=== PATIENT | female | born 1950 | race Caucasian/White ===

== ENCOUNTER 2019-11-21 15:01 | Emergency (ER) | payer OTHER ==
[2019-11-21 16:27] LABS: Protime INR 1.03
[2019-11-21 16:29] LABS: Absolute Lymphocytes (CBC) 1.4 K/uL (0.7-4.9); Hematocrit 38.6 % (36.0-45.0); Lymphocytes % 17.1 % (15.3-44.8); MPV 8.7 fL (7.6-11.3)
[2019-11-21 16:38] LABS: ALT/SGPT 16 U/L (12-78); AST/SGOT 19 U/L (15-37); Albumin 3.8 g/dL (3.4-5.0); Alkaline Phosphatase 108 U/L (45-117); BUN Blood Urea Nitrogen 17 mg/dL (7-18); Bicarbonate 28 mmol/L (21-32); Bilirubin Direct < 0.1 mg/dL (0-0.2); Bilirubin Total 0.3 mg/dL (0.2-1.0); Glucose Level 90 mg/dL (74-106); Magnesium 2.2 mg/dL (1.8-2.4); NT PRO-BNP 183 pg/mL (<125); Potassium 3.9 mmol/L (3.5-5.1); Protein, Total 7.3 g/dL (6.4-8.2); Sodium Level 137 mmol/L (136-145); Troponin (Emerg Dept Use Only) < 0.02 ng/mL (0.0-0.045)
--- NOTE | 2019-11-21 16:52 | RAD REPORT ---
EXAM DESCRIPTION: CT - Chest For Pe Angio - 11/21/2019 4:29 pm CLINICAL HISTORY: hemoptysis COMPARISON: 2012 TECHNIQUE: Dynamically enhanced axial 3 mm thick images of the chest were obtained during administra tion of <100> mL Isovue 370 IV contrast. Coronal and oblique reconstruction images were generated and reviewed. Exam utilizes a protocol for optimal evaluation of pulmonary arterial tree. Maximum intensity projections 3D imaging was utilized All CT scans are performed using dose optimization technique as appropriate and may include automated exposure control or mA/KV adjustment according to patient size. FINDINGS: A pulmonary embolus is not seen. The ascending thoracic aorta is ectatic measuring 3.8 centimeters. Bovine aorta A pleural effusion is not seen. A pericardial effusion is not seen. A lung consolidation is not present. Mild COPD IMPRESSION: Negative for a pulmonary embolism.
[2019-11-21 18:04] VITALS: TEMP 98.4
[2019-11-21 18:06] VITALS: BP 185/80; O2SAT 95
--- NOTE | 2019-11-22 12:55 | EKG ---
Test Date: 2019-11-21 Test Time: 16:48:27 Horse Identifier: SELVIN MEASUREMENT RESULTS: Intervals: Rate: 68 [place]: 160 QRSD: 74 QT: 440 QTc: 467 [place]: P: 62 [place]: 160 QRS: 13 T: -24 INTERPRETIVE STATEMENTS: Normal sinus rhythm Nonspecific T wave abnormality Abnormal ECG Electronically Signed On 11-22-19 12:54:56 CDT by Vivek Lara
--- NOTE | 2019-11-24 17:12 | ER ---
Nurse's Notes [facility] Name: Lachelle Spann Age: 68 yrs Sex: Female : 1950 Arrival Date: 11/21/2019 Time: 15:04 Bed 18 Private MD: Bakari Velasco V Diagnosis: Hemoptysis Presentation: 11/20 15:28 Chief complaint: Patient states: 1 episode of hemoptysis today after coughing, also ph reports SOB and L leg swelling, denies fever or chills. Coronavirus screen: Patient denies a cough. Patient reports shortness of breath or difficulty breathing. Patient denies measured and/or subjective temperature greater than 100.4F prior to today's visit. Patient denies travel on a cruise ship or to a country the [facility] currently lists as an affected area. Patient denies contact with known and/or suspected case of COVID-19. Ebola Screen: No symptoms or risks identified at this time. Initial Sepsis Screen: Does the patient meet any 2 criteria? No. Patient's initial sepsis screen is negative. Does the patient have a suspected source of infection? No. Patient's initial sepsis screen is negative. Risk Assessment: Do you want to hurt yourself or someone else? Patient reports no desire to harm self or others. Onset of symptoms was November 21, 2019. 15:28 Method Of Arrival: Ambulatory ph 15:28 Acuity: DORA 3 ph Historical: - Allergies: 15:35 No Known Allergies; ph - Home Meds: 15:35 duloxetine oral oral [Active]; Methylphenidate Oral [Active]; levothyroxine oral ph [Active]; Bupropion Oral [Active]; atorvastatin oral oral [Active]; Zyrtec Oral [Active]; Combivent Inhl [Active]; Triamcinolone Acetonide Topical [Active]; trelegy ellipta inhaler [Active]; - PMHx: 15:35 allergies; Depression; GERD; COPD; ph - Immunization history:: Adult Immunizations unknown. - Social history:: Smoking status: Patient denies any tobacco usage or history of. Screenin:40 Abuse screen: Denies threats or abuse. Denies injuries from another. Nutritional ca1 screening: No deficits noted. Tuberculosis screening: No symptoms or risk factors identified. Fall Risk IV access (20 points). Assessment: 15:40 General: Appears in no apparent distress. comfortable, Behavior is calm, cooperative, ca1 appropriate for age. Pain: Denies pain. Neuro: Level of Consciousness is awake, alert, obeys commands, Oriented to person, place, time, situation, Appropriate for age. Cardiovascular: Heart tones S1 S2 present Capillary refill < 3 seconds Patient's skin is warm and dry. Respiratory: Airway is patent Respiratory effort is even, unlabored, Respiratory pattern is regular, symmetrical, Breath sounds are clear bilaterally. GI: Abdomen is round non-distended, Bowel sounds present X 4 quads. Abd is soft and non tender X 4 quads. : No signs and/or symptoms were reported regarding the genitourinary system. EENT: Throat is clear. Derm: Skin is intact, is healthy with good turgor, Skin is pink, warm \T\ dry. Musculoskeletal: Circulation, motion, and sensation intact. Capillary refill < 3 seconds. 16:40 Reassessment: Patient appears in no apparent distress at this time. No changes from ca1 previously documented assessment. Patient and/or family updated on plan of care and expected duration. Pain level reassessed. Patient is alert, oriented x 3, equal unlabored respirations, skin warm/dry/pink. 17:33 Reassessment: Patient appears in no apparent distress at this time. Patient is alert, ca1 oriented x 3, equal unlabored respirations, skin warm/dry/pink. 17:41 Reassessment: Notified provider re BP. No orders at this time. ca1 Vital Signs: 15:28 BP 157 / 67; Pulse 62; Resp 18; Temp 98.4; Pulse Ox 95% on R/A; Weight 90.72 kg; Height ph 5 ft. 2 in. (157.48 cm); 16:40 BP 175 / 74; Pulse 65; Resp 16 S; Pulse Ox 96% on R/A; ca1 17:38 BP 185 / 80; Pulse 64; Resp 16 S; Pulse Ox 95% on R/A; ca1 15:28 Body Mass Index 36.58 (90.72 kg, 157.48 cm) ph ED Course: 15:04 Patient arrived in ED. ag5 15:04 Bakari Velasco MD is Private Physician. [facility] 15:17 Cody Hough PA is PHCP. [facility] 15:17 Allan Heath MD is Attending Physician. jmm 15:31 Triage completed. ph 15:36 Arm band placed on Patient placed in an exam room. ph 15:40 Analilia Delgadillo, RN is Primary Nurse. ca1 15:40 Patient has correct armband on for positive identification. Bed in low position. Call ca1 light in reach. Side rails up X 1. color television console monitor on. Pulse ox on. NIBP on. Warm blanket given. 16:07 No provider procedures requiring assistance completed. Initial lab(s) drawn, by ma, ca1 sent to lab. Inserted saline lock: 22 gauge in right antecubital area, using aseptic technique. Blood collected. 16:30 CT Chest For PE Angio In Process Unspecified. EDMS 17:00 Bakari Velasco MD is Referral Physician. [facility] 17:42 IV discontinued, intact, bleeding controlled, No redness/swelling at site. Pressure ca1 dressing applied. Administered Medications: No medications were administered Outcome: 17:00 Discharge ordered by MD. [facility] 17:42 Discharged to home ambulatory. ca1 17:42 Condition: stable 17:42 Discharge instructions given to patient, Instructed on discharge instructions, follow up and referral plans. Demonstrated understanding of instructions, follow-up care. 17:44 Patient left the ED. ca1 Signatures: Dispatcher [employer] EDMS Cody Hough PA PA jmm Hall, Patricia, RN RN Analilia Delgadillo, RN RN [facility] Carolyn Haynes ag5 Corrections: (The following items were deleted from the chart) 17:38 16:40 BP 185 / 80; Pulse 64bpm; Resp 16bpm; Spontaneous; Pulse Ox 95% RA; ca1 ca1
--- NOTE | 2019-11-24 17:12 | EDPHYS ---
Physician Documentation [facility] Name: Lachelle Spann Age: 68 yrs Sex: Female : 1950 Arrival Date: 11/21/2019 Time: 15:04 Bed 18 Private MD: Bakari Velasco V ED Physician Allan Heath HPI: 11/20 15:42 This 68 yrs old Female presents to ER via Ambulatory with complaints of jmm Coughing up Blood. 15:42 The patient or guardian reports cough. Onset: The symptoms/episode began/occurred jmm acutely, today. Modifying factors: The symptoms are alleviated by nothing, the symptoms are aggravated by nothing. This is a 68 year old female with a history of copd that presents to the ED with complaints of coughing up blood. Patient denies abnormal shortness of breath, fever, or chest pain. . Historical: - Allergies: 15:35 No Known Allergies; ph - Home Meds: 15:35 duloxetine oral oral [Active]; Methylphenidate Oral [Active]; levothyroxine oral ph [Active]; Bupropion Oral [Active]; atorvastatin oral oral [Active]; Zyrtec Oral [Active]; Combivent Inhl [Active]; Triamcinolone Acetonide Topical [Active]; trelegy ellipta inhaler [Active]; - PMHx: 15:35 allergies; Depression; GERD; COPD; ph - Immunization history:: Adult Immunizations unknown. - Social history:: Smoking status: Patient denies any tobacco usage or history of. ROS: 15:42 Constitutional: Negative for fever, chills, and weight loss, Cardiovascular: Negative jmm for chest pain, palpitations, and edema. 15:42 Abdomen/GI: Negative for abdominal pain, nausea, vomiting, diarrhea, and constipation, Back: Negative for injury and pain, : Negative for injury, bleeding, discharge, and swelling, MS/Extremity: Negative for injury and deformity, Skin: Negative for injury, rash, and discoloration, Neuro: Negative for headache, weakness, numbness, tingling, and seizure, Psych: Negative for depression, anxiety, suicide ideation, homicidal ideation, and hallucinations. 15:42 Respiratory: Positive for hemoptysis. 15:42 All other systems are negative. Exam: 15:42 Constitutional: This is a well developed, well nourished patient who is awake, alert, jmm and in no acute distress. Head/Face: atraumatic. Eyes: EOMI, no conjunctival erythema appreciated ENT: Moist Mucus Membranes Neck: Trachea midline, Supple 15:42 Chest/axilla: Normal chest wall appearance and motion. Cardiovascular: Regular rate and rhythm. No edema appreciated Respiratory: Normal respirations, no respiratory distress appreciated Abdomen/GI: Non distended, soft Back: Normal ROM Skin: General appearance color normal MS/ Extremity: Moves all extremities, no obvious deformities appreciated, no edema noted to the lower extremities Neuro: Awake and alert, normal gait Psych: Behavior is normal, Mood is normal, Patient is cooperative and pleasant 15:42 ENT: Posterior pharynx: is normal. Vital Signs: 15:28 BP 157 / 67; Pulse 62; Resp 18; Temp 98.4; Pulse Ox 95% on R/A; Weight 90.72 kg; Height ph 5 ft. 2 in. (157.48 cm); 16:40 BP 175 / 74; Pulse 65; Resp 16 S; Pulse Ox 96% on R/A; ca1 17:38 BP 185 / 80; Pulse 64; Resp 16 S; Pulse Ox 95% on R/A; ca1 15:28 Body Mass Index 36.58 (90.72 kg, 157.48 cm) ph MDM: 15:42 Patient medically screened. [facility] 16:59 Data reviewed: vital signs, nurses notes. Counseling: I had a detailed discussion with [facility] the patient and/or guardian regarding: the historical points, exam findings, and any diagnostic results supporting the discharge/admit diagnosis, lab results, radiology results, the need for outpatient follow up, to return to the emergency department if symptoms worsen or persist or if there are any questions or concerns that arise at home. ED course: Labs and imaging studies are negative. Patient is advised to follow up with pcp for reevaluation. patient understood and agrees with the plan of care. . 11/20 15:50 Order name: Basic Metabolic Panel; Complete Time: 16:[address] [facility] 11/20 15:50 Order name: CBC with Diff; Complete Time: 16:[address] [facility] 11/20 15:50 Order name: LFT's; Complete Time: 16:[address] [facility] 11/20 15:50 Order name: Magnesium; Complete Time: 16:[address] [facility] 11/20 15:50 Order name: NT PRO-BNP; Complete Time: 16:[address] [facility] 11/20 15:50 Order name: PT-INR; Complete Time: 16:[address] [facility] 11/20 15:50 Order name: Troponin (emerg Dept Use Only); Complete Time: 16:[address] [facility] 11/20 15:50 Order name: EKG; Complete Time: 15:[address] [facility] 11/20 15:50 Order name: Cardiac monitoring; Complete Time: 16:[address] [facility] 11/20 15:50 Order name: EKG - Nurse/Tech; Complete Time: 16:[address] [facility] 11/20 15:50 Order name: IV Saline Lock; Complete Time: 16:[address] [facility] 11/20 15:50 Order name: Labs collected and sent; Complete Time: 16:[address] [facility] 11/20 15:50 Order name: CT Chest For PE Angio; Complete Time: 16:[address] [facility] 11/20 16:42 Order name: CREATININE WHOLE BLOOD [facility] 11/20 15:50 Order name: O2 Per Protocol; Complete Time: 16:[address] [facility] 11/20 15:50 Order name: O2 Sat Monitoring; Complete Time: 16:[address] [facility] Administered Medications: No medications were administered Disposition: 11/21 07:49 Co-signature as Attending Physician, Allan Heath MD I agree with the assessment and zarina plan of care. Disposition: 11/21/19 17:00 Discharged to Home. Impression: Hemoptysis. - Condition is Stable. - Discharge Instructions: Hemoptysis. - Medication Reconciliation Form, Thank You Letter, Antibiotic Education, Prescription Opioid Use form. - Follow up: Bakari Velasco MD; When: 2 - 3 days; Reason: Recheck today's complaints, Continuance of care, Re-evaluation by your physician. Signatures: Dispatcher [employer] Allan Lyn MD MD cha Mickail, Joel, PA PA Ailyn Anderson, RODRIGO RN Analilia Rogers RN RN ca1 Corrections: (The following items were deleted from the chart) 11/20 17:44 17:00 11/21/2019 17:00 Discharged to Home. Impression: Hemoptysis. Condition is Stable. ca1 Forms are Medication Reconciliation Form, Thank You Letter, Antibiotic Education, Prescription Opioid Use. Follow up: Bakari Velasco; When: 2 - 3 days; Reason: Recheck today's complaints, Continuance of care, Re-evaluation by your physician. stevan
== END 2019-11-21 17:44 | disposition home or self-care (01) ==
LOC: ER 15:01
DX: R04.2 Hemoptysis (principal); J44.9 Chronic obstructive pulmonary disease, unspecified; F32.9 Major depressive disorder, single episode, unspecified
CPT/HCPCS: 93005; 85025; 80048; 36415; 83735; 85610; 82565; 80076; 84484; 83880; 71275; 99284; Q9967

== ENCOUNTER 2021-01-22 17:15 | Inpatient (IN) | payer OTHER ==
--- OUTSIDE RECORDS SUMMARY | 2021-01-22 17:17 | XMS REPORT | Continuity of Care Document ---
:1950 Author Organization [facility] t Address [address] [place] [address] [address] [place] [address] Care Team Providers Name Role Phone Annalisa Dalal MD Attending Clinician Problems This patient has no known problems. Allergies, Adverse Reactions, Alerts This patient has no known allergies or adverse reactions. Medications This patient has no known medications. Procedures This patient has no known procedures. Encounters Start End Encounter Admission Attending Care Care Encounter Source Date/Time Date/Time Type Type Clinicians Facility Department ID 2020-01-09 2020-01-09 Office [place] [facility] [id number] 15:19:18 16:43:19 Visit Kaity Guy [id number] [place] [id number] [place] [id number] [facility] [address] [facility] Results This patient has no known results.
[2021-01-22] MEDS ORDERED: LEVALBUTEROL 1.25 MG/3 ML NEB ONE (18:34)
[2021-01-22] MEDS ORDERED: MAGNESIUM SULFATE 1 gm IVPB 1 GM/100 ML BAG IV ONE (18:34)
[2021-01-22] MEDS ORDERED: METHYLPREDNISOLONE 125 MG INJ ONE (18:34)
[2021-01-22 19:14] LABS: Absolute Lymphocytes (CBC) 0.8 K/uL (0.7-4.9); Basophils % 0.8 % (0-1.3); Lymphocytes % 10.6 % (15.3-44.8); RBC Red Blood Cell Count 4.45 M/uL (3.86-4.86)
[2021-01-22 19:19] LABS: Protime INR 1.13
[2021-01-22 19:25] LABS: Albumin 3.6 g/dL (3.4-5.0); Bilirubin Direct 0.1 mg/dL (0-0.2); Bilirubin Total 0.4 mg/dL (0.2-1.0); Magnesium 2.3 mg/dL (1.8-2.4); Potassium 4.2 mmol/L (3.5-5.1); Protein, Total 6.6 g/dL (6.4-8.2); Troponin (Emerg Dept Use Only) 0.04 ng/mL (0.0-0.045)
--- NOTE | 2021-01-22 19:35 | RAD REPORT ---
EXAM DESCRIPTION: RAD - Chest Single View - 01/22/2021 6:15 pm CLINICAL HISTORY: shortness of breath COMPARISON: Chest Pa And Lat (2 Views) dated 01/19/2021; Chest Pa And Lat (2 Views) dated 12/22/2020; Chest Pa And Lat (2 Views) dated 11/13/2019; Chest Pa And Lat (2 Views) dated 01/02/2019; Chest Angio d ated 12/22/2020 FINDINGS: Basilar opacities are present bilaterally, left greater than right, with blunted costophre whitney angles. Cardiomegaly. No acute osseous abnormality. IMPRESSION: Similar basilar airspace disease compared with 01/19/21 which could represent pneumonia b ut could also be secondary to edema with small effusions.
--- NOTE | 2021-01-22 22:13 | RAD REPORT ---
EXAM DESCRIPTION: CT - Chest For Pe Angio - 01/22/2021 9:49 pm CLINICAL HISTORY: left lower lung pain COMPARISON: Chest Angio dated 12/22/2020; Chest For Pe Angio dated 11/21/2019; CT-LOW DOSE CT CHEST SC REENING dated 05/01/2013; Chest Single View dated 01/22/2021 FINDINGS: Chest Wall: No suspicious thyroid nodules or pathologic lymphadenopathy. Lungs: Atelectasis as a result of the effusions. No convincing evidence of pneumonia. Mild areas of i nterlobular septal thickening. Pleura: Bilateral pleural effusions, small in size. Pleural base calcification left lower lobe. There is some fluid in the right major fissure. Increasing pleural/subpleural nodularity in the right midd le lobe. Mediastinum/sharon: No pathologic lymphadenopathy. Pulmonary arteries/Aorta: No filling defect identified. 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 Heart: No significant pericardial effusion. Normal heart size. Coronary artery calcifications. Trace pericardial effusion. Upper abdomen: New small volume of ascites. Bones: No acute abnormality. IMPRESSION: Negative for pulmonary embolism. New pleural effusions compared with 12/22/2020 of uncertain etiology, possibly some mild edema. In ad dition, increasing pleural-based nodularity along the right middle lobe compared with the prior study . A benign etiology is favored but the appearance is atypical for pneumonia. It may be more prominent secondary to the underlying pleural fluid or perhaps superimposed atelectasis. Consider either short term follow-up chest CT in 3 months and/or nonemergent diagnostic thoracentesis for fluid analysis. Small volume of ascites which is new from prior.
--- NOTE | 2021-01-22 23:25 | EDPHYS ---
Physician Documentation [facility] Name: Lachelle Spann Age: 70 yrs Sex: Female : 1950 Arrival Date: 01/22/2021 Time: 17:16 Bed 6 Private MD: ED Physician Cain Couch HPI: 01/22 17:50 This 70 yrs old Female presents to ER via Wheelchair with complaints of jmm Breathing Difficulty. 17:50 The patient has shortness of breath at rest, with light activity. Onset: The jmm symptoms/episode began/occurred gradually, 2 week(s) ago. Duration: The symptoms are continuous, and are steadily getting worse. The patient's shortness of breath is aggravated by nothing, is alleviated by nothing. Associated signs and symptoms: Pertinent positives: non-productive cough, Pertinent negatives: fever. The patient has experienced similar episodes in the past. Historical: - Allergies: 17:25 No Known Allergies; iw - PMHx: 17:25 allergies; COPD; Depression; GERD; iw - Immunization history:: Client reports receiving the 2nd dose of the Covid vaccine. - Social history:: Smoking status: Patient/guardian denies using tobacco, the patient reports quitting approximately 10 years ago. ROS: 17:50 Constitutional: Negative for fever, chills, and weight loss, Cardiovascular: Negative jmm for chest pain, palpitations, and edema. 17:50 Respiratory: Positive for cough. 17:50 All other systems are negative. Exam: 17:50 Constitutional: This is a well developed, well nourished patient who is awake, alert, jmm and in no acute distress. Head/Face: atraumatic. Eyes: EOMI, no conjunctival erythema appreciated ENT: Moist Mucus Membranes Neck: Trachea midline, Supple Chest/axilla: Normal chest wall appearance and motion. Cardiovascular: Regular rate and rhythm. No edema appreciated Abdomen/GI: Non distended, soft Back: Normal ROM Skin: General appearance color normal MS/ Extremity: Moves all extremities, no obvious deformities appreciated, no edema noted to the lower extremities Neuro: Awake and alert, normal gait Psych: Behavior is normal, Mood is normal, Patient is cooperative and pleasant 17:50 Respiratory: mild respiratory distress is noted, Respirations: labored breathing, that is mild, Breath sounds: decreased breath sounds, that are moderate, are heard in the left posterior upper lobe and right posterior upper lobe. Vital Signs: 17:24 BP 156 / 98; Pulse 94; Resp 24 S; Temp 97.2; Pulse Ox 95% on R/A; Weight 54.43 kg; iw Height 5 ft. 2 in. (157.48 cm); 20:03 BP 156 / 86; Pulse 77; Resp 26; Pulse Ox 100% on Nebulizer Mask; em 22:39 BP 150 / 89; Pulse 97; Resp 22; Pulse Ox 93% on R/A; em 17:24 Body Mass Index 21.95 (54.43 kg, 157.48 cm) iw MDM: 17:39 Patient medically screened. [facility] 23:15 Data reviewed: vital signs, nurses notes. ED course: patient continues to have chest jmm pain and sob. Dr. Heath will discuss the patient with Dr. Velasco in the AM. . 01/22 17:33 Order name: Basic Metabolic Panel [facility] 01/22 17:33 Order name: CBC with Diff [facility] 01/22 17:33 Order name: LFT's [facility] 01/22 17:33 Order name: Magnesium; Complete Time: 19:40 [facility] 01/22 17:33 Order name: NT PRO-BNP; Complete Time: 19:40 [facility] 01/22 17:33 Order name: PT-INR; Complete Time: 19:40 [facility] 01/22 17:33 Order name: Troponin (emerg Dept Use Only); Complete Time: 19:40 [facility] 01/22 17:33 Order name: Basic Metabolic Panel; Complete Time: 19:40 [facility] 01/22 17:33 Order name: CBC with Automated Diff; Complete Time: 19:40 [facility] 01/22 17:33 Order name: Liver (Hepatic) Function; Complete Time: 19:40 [facility] 01/22 17:41 Order name: Procalcitonin; Complete Time: 19:47 [facility] 01/22 17:41 Order name: Lactate; Complete Time: 19:40 [facility] 01/22 17:41 Order name: Blood Culture Adult (2) [facility] 01/22 17:33 Order name: XRAY Chest (1 view); Complete Time: 19:40 [facility] 01/22 17:33 Order name: EKG; Complete Time: 17:33 [facility] 01/22 21:02 Order name: CT Chest For PE Angio; Complete Time: 22:13 [facility] 01/22 22:12 Order name: Troponin (emerg Dept Use Only); Complete Time: 23:02 [facility] 01/22 22:29 Order name: SARS-COV-2 RT PCR; Complete Time: 22:33 [facility] 01/22 23:41 Order name: Basic Metabolic Panel [facility] 01/22 23:41 Order name: Basic Metabolic Panel [facility] 01/22 23:41 Order name: CONS Physician Consult [facility] 01/22 23:41 Order name: Troponin I [facility] 01/22 23:41 Order name: Troponin I [facility] 01/22 23:41 Order name: Troponin I [facility] 01/22 23:41 Order name: CBC with Automated Diff [facility] 01/22 23:41 Order name: CBC with Automated Diff [facility] 01/22 17:33 Order name: Cardiac monitoring; Complete Time: 18:30 [facility] 01/22 17:33 Order name: EKG - Nurse/Tech; Complete Time: 20:03 [facility] 01/22 17:33 Order name: IV Saline Lock; Complete Time: 19:15 [facility] 01/22 17:33 Order name: Labs collected and sent; Complete Time: 19:15 [facility] 01/22 17:33 Order name: O2 Per Protocol; Complete Time: 18:30 [facility] 01/22 17:33 Order name: O2 Sat Monitoring; Complete Time: 18:30 [facility] 01/22 21:18 Order name: Misc. Order: ambulate o2; Complete Time: 22:42 [facility] 01/22 23:41 Order name: EKG Electrocardiogram [facility] 01/22 23:41 Order name: EKG Electrocardiogram [facility] 01/22 23:41 Order name: EKG Electrocardiogram [facility] 01/22 23:41 Order name: EKG Electrocardiogram [facility] Administered Medications: 19:50 Drug: Magnesium Sulfate 1 grams Route: IVPB; Infused Over: 1 hrs; Site: right em antecubital; 22:28 Follow up: Response: No adverse reaction; IV Status: Completed infusion; IV Intake: em 100ml 19:50 Drug: SOLU-Medrol (methylPrednisoLONE) 125 mg Route: IVP; Site: right antecubital; em 22:28 Follow up: Response: No adverse reaction em 20:03 Drug: Xopenex (levalbuterol) (3) 1.25 mg Route: Inhalation; em 22:28 Follow up: Response: No adverse reaction; Marked relief of symptoms em Disposition: 01/23 07:02 Co-signature as Attending Physician, Cain Couch MD I agree with the assessment and rn plan of care. Attestation: The patient's history, exam findings, diagnostics, and a summary of any interventions or procedures was reviewed in detail with Cody GORDON. Disposition Summary: 01/22/21 23:25 Hospitalization Ordered Hospitalization Status: Observation [facility] Provider: Bakari Velasco Location: Telemetry/MedSur (observation) [facility] Condition: Stable jmm Problem: new jmm Symptoms: are unchanged jmm Bed/Room Type: Standard [facility] Room Assignment: 214(01/22/21 23:52) bb Diagnosis - Chest pain, unspecified jmm - Shortness of breath jmm Forms: - Medication Reconciliation Form jmm - SBAR form jmm Signatures: Dispatcher [employer] EDMS Cody Hough PA PA m Frederick Ansari, RN RODRIGO em Emani Mcnair RN RN Adriana Hubbard RN Cain Diaz MD MD learning strategist: (The following items were deleted from the chart) 01/22 20:48 17:33 CORONAVIRUS+LAB.BRZ ordered. EDIA EDMS 23:52 23:25 osmani berger
--- NOTE | 2021-01-22 23:25 | ER ---
Nurse's Notes [facility] Name: Lachelle Spann Age: 70 yrs Sex: Female : 1950 Arrival Date: 01/22/2021 Time: 17:16 Bed 6 Private MD: Diagnosis: Chest pain, unspecified;Shortness of breath Presentation: 01/22 17:24 Chief complaint: Patient states: had CXR done a couple days ago , got a call today that iw she has pneumonia and to come to ER, per Dr. Velasco. Has had diff bx for a couple weeks , no cough, hx of COPD SPO2 is 92%. Coronavirus screen: Client presents with at least one sign or symptom that may indicate coronavirus-19. Ebola Screen: Patient negative for fever greater than or equal to 101.5 degrees Fahrenheit, and additional compatible Ebola Virus Disease symptoms Patient denies exposure to infectious person. Patient denies travel to an Ebola-affected area in the 21 days before illness onset. No symptoms or risks identified at this time. Initial Sepsis Screen: Does the patient meet any 2 criteria? No. Patient's initial sepsis screen is negative. Does the patient have a suspected source of infection? No. Patient's initial sepsis screen is negative. Risk Assessment: Do you want to hurt yourself or someone else? Patient reports no desire to harm self or others. Onset of symptoms was January 07, 2021. 17:24 Method Of Arrival: Wheelchair iw 17:24 Acuity: DORA 2 iw Historical: - Allergies: 17:25 No Known Allergies; iw - PMHx: 17:25 allergies; COPD; Depression; GERD; iw - Immunization history:: Client reports receiving the 2nd dose of the Covid vaccine. - Social history:: Smoking status: Patient/guardian denies using tobacco, the patient reports quitting approximately 10 years ago. Screenin:22 Abuse screen: Denies threats or abuse. Nutritional screening: No deficits noted. em Tuberculosis screening: No symptoms or risk factors identified. Fall Risk None identified. Assessment: 18:57 General: Appears in no apparent distress. comfortable, Behavior is calm, cooperative, jd3 appropriate for age. Pain: Denies pain. Neuro: Level of Consciousness is awake, alert, obeys commands. Cardiovascular: Denies chest pain, Capillary refill < 3 seconds Patient's skin is warm and dry. Respiratory: Reports shortness of breath on exertion Airway is patent Respiratory effort is even, unlabored, Respiratory pattern is regular, symmetrical. GI: No signs and/or symptoms were reported involving the gastrointestinal system. : No signs and/or symptoms were reported regarding the genitourinary system. EENT: No signs and/or symptoms were reported regarding the EENT system. Derm: Skin is intact, Skin is dry, Skin is normal, Skin temperature is warm. Musculoskeletal: Circulation, motion, and sensation intact. Range of motion: intact in all extremities. 20:04 Reassessment: Patient appears in no apparent distress at this time. Patient and/or em family updated on plan of care and expected duration. Pain level reassessed. Patient is alert, oriented x 3, equal unlabored respirations, skin warm/dry/pink. 22:39 Reassessment: pt ambulated about 40 feet, SPO2 92% after ambulation, provider notified. em 01/23 00:30 Reassessment: Patient appears in no apparent distress at this time. Patient and/or em family updated on plan of care and expected duration. Pain level reassessed. Patient is alert, oriented x 3, equal unlabored respirations, skin warm/dry/pink. Vital Signs: 01/22 17:24 BP 156 / 98; Pulse 94; Resp 24 S; Temp 97.2; Pulse Ox 95% on R/A; Weight 54.43 kg; iw Height 5 ft. 2 in. (157.48 cm); 20:03 BP 156 / 86; Pulse 77; Resp 26; Pulse Ox 100% on Nebulizer Mask; em 22:39 BP 150 / 89; Pulse 97; Resp 22; Pulse Ox 93% on R/A; em 17:24 Body Mass Index 21.95 (54.43 kg, 157.48 cm) ED Course: 17:16 Patient arrived in ED. rg4 17:25 Triage completed. iw 17:26 Arm band placed on. iw 17:32 Cody Hough PA is PHCP. m 17:32 Cain Couch MD is Attending Physician. jmm 18:15 XRAY Chest (1 view) In Process Unspecified. EDMS 18:57 Aly Martines, RODRIGO is Primary Nurse. jd3 18:57 Inserted saline lock: 22 gauge in right antecubital area, using aseptic technique. jd3 Blood collected. 19:22 Patient has correct armband on for positive identification. Bed in low position. Call em light in reach. Adult w/ patient. jewelry sales on. Pulse ox on. NIBP on. 20:03 EKG done, by ED staff, reviewed by Cody GORDON. em 21:49 CT Chest For PE Angio In Process Unspecified. EDMS 23:16 Bakari Velasco MD is Hospitalizing Provider. [facility] 01/23 00:53 No provider procedures requiring assistance completed. Patient admitted, IV remains in em place. Administered Medications: 01/22 19:50 Drug: Magnesium Sulfate 1 grams Route: IVPB; Infused Over: 1 hrs; Site: right em antecubital; 22:28 Follow up: Response: No adverse reaction; IV Status: Completed infusion; IV Intake: em 100ml 19:50 Drug: SOLU-Medrol (methylPrednisoLONE) 125 mg Route: IVP; Site: right antecubital; em 22:28 Follow up: Response: No adverse reaction em 20:03 Drug: Xopenex (levalbuterol) (3) 1.25 mg Route: Inhalation; em 22:28 Follow up: Response: No adverse reaction; Marked relief of symptoms em Intake: 22:28 IV: 100ml; Total: 100ml. em Outcome: 23:25 Decision to Hospitalize by Provider. [facility] 01/23 00:53 Admitted to Med/surg accompanied by tech, via wheelchair, room 214, Report called to mario Gifford RN Condition: stable Instructed on the need for admit, Demonstrated understanding of instructions. 01:16 Patient left the ED. em Signatures: Dispatcher [employer] EDCody Patel PA PA Frederick Coates, RN RN Adriana Lord RN RN iw Garcia, Rubi rgAly Renteria RN RN jd3
[2021-01-22] MEDS ORDERED: ACETAMINOPHEN 500 MG TAB PO PRN (23:38)
[2021-01-22] MEDS ORDERED: ONDANSETRON 4 MG/2 ML VIAL IV PRN (23:38)
[2021-01-23 01:21] VITALS: BMI 34.9
[2021-01-23 04:18] LABS: Absolute Lymphocytes (CBC) 0.4 K/uL (0.7-4.9); Basophils % 0.5 % (0-1.3); Hematocrit 35.2 % (36.0-45.0); Lymphocytes % 4.3 % (15.3-44.8); RBC Red Blood Cell Count 4.61 M/uL (3.86-4.86)
[2021-01-23 05:07] LABS: Potassium 4.3 mmol/L (3.5-5.1)
[2021-01-23] MEDS ORDERED: PNEUMOCOCCAL VACCINE 0.5 ML IMVAC ONE (08:00)
[2021-01-23] MEDS: ALBUTEROL SULFATE IH SCH ×4 (09:00→20:55)
[2021-01-23] MEDS ORDERED: HOME MED 1 EA UNK (Duloxetine Hcl [Cymbalta] 60 MG Capsule.Dr) PO SCH (09:00)
[2021-01-23] MEDS: IPRATROPIUM IH SCH ×4 (09:00→20:55)
[2021-01-23] MEDS: [UNRECOGNIZED DRUG - OTHER] IH SCH ×4 (09:00→20:55)
[2021-01-23] MEDS ORDERED: ASPIRIN EC 81 MG TAB PO SCH (09:00)
[2021-01-23] MEDS ORDERED: TRAZODONE 50 MG TABLET PO SCH (09:00)
[2021-01-23] MEDS: HOME MED 1 EA UNK (Fluticasone/Umeclidin/Vilanter [Trelegy Ellipta 100-62.5-25] Blst.W.Dev IH SCH (09:00)
[2021-01-23] MEDS: DULOXETINE 30 MG CAP PO SCH (10:10)
[2021-01-23] MEDS: ATORVASTATIN 10 MG TAB PO SCH (10:10)
[2021-01-23] MEDS: BUPROPION HCL XL 150 MG TAB PO SCH (10:10)
[2021-01-23] MEDS: ASPIRIN EC 81 MG TAB PO SCH (10:14)
--- NOTE | 2021-01-23 11:30 | P.HP ---
Certification for Inpatient Patient admitted to: Observation With expected LOS: <2 Midnights Practitioner: I am a practitioner with admitting privileges, knowledge of patient current condition, hospital course, and medical plan of care. Services: Services provided to patient in accordance with Admission requirements found in Title 42 Section 412.3 of the Code of Federal Regulations Patient History Date of Service: 01/23/21 Reason for admission: SHORT OF BREATH History of Present Illness: JERRICA HAS BEEN DYSPNEIC WIT EXERCSION FOR 3 WEEKS. CXR SHOWED INFILTERATE BUT ACTUALLY SHE DOES NOT HAVE COUGH, FEVER, SPUTUM ETC. HER COVID TEST IS NEGATIVE. SHE HAS KNOWN CAD WITH STENTS. Allergies No Known Allergies Allergy (Verified 06/11/14 16:10) Home medications list reviewed: Yes Home Medications: Bupropion *Xl* [Wellbutrin XL*] 300 mg PO DAILY 06/11/14 Ipratropium/Albuterol Sulfate [Combivent Respimat Inhal [place]] 1 puff IH QID 06/11/14 Levothyroxine Sodium [Synthroid] 100 mcg PO DAILY 06/11/14 Trazodone [Desyrel*] 50 mg PO DAILY 06/11/14 Aspirin [Ecotrin 81 MG] 81 mg PO DAILY #30 tablet. 06/13/14 Atorvastatin Calcium [Lipitor*] 10 mg PO DAILY 01/23/21 Duloxetine HCl [Cymbalta] 60 mg PO DAILY 01/23/21 Fluticasone/Umeclidin/Vilanter [Trelegy Ellipta 100-62.5-25] 1 puff IH DAILY 01/23/21 - Past Medical/Surgical History Has patient received pneumonia vaccine in the past: No Diabetic: No -: COPD -: HTN -: Endometriosis sx -: Cardiac stentx2 2014 -: Adhesiolysis - Family History Mother -: Cancer Notes: breast cancer Father -: Heart disease Sister -: Stroke - Social History Smoking Status: Former smoker Alcohol use: Yes CD- Drugs: No Caffeine use: Yes Place of Residence: Home Review of Systems 10-point ROS is otherwise unremarkable General: Weakness, Malaise Respiratory: Shortness of Breath Physical Examination - Vital Signs Temperature: 97.2 F Blood Pressure: 136/69 Pulse: 69 Respirations: 18 Pulse Ox (%): 91 - Physical Exam General: Oriented x3, Mild distress HEENT: Atraumatic, PERRLA, Mucous membr. moist/pink, EOMI, Sclerae nonicteric Neck: Supple, 2+ carotid pulse no bruit, No LAD, Without JVD or thyroid abnormality, JVD distended (MILD) Respiratory: Clear to auscultation bilaterally, Normal air movement Cardiovascular: Regular rate/rhythm, Normal S1 S2 Gastrointestinal: Normal bowel sounds, No tenderness Musculoskeletal: No tenderness Integumentary: No rashes Neurological: Normal gait, Normal speech, Normal strength at 5/5 x4 extr, Normal tone, Normal affect Lymphatics: No axilla or inguinal lymphadenopathy - Studies Laboratory Data (last 24 hrs) 01/22/21 23:45: Troponin I Cancelled 01/22/21 18:49: PT 13.0 H, INR 1.13 01/22/21 18:49: WBC 7.90, Hgb 10.9 L, Hct 34.0 L, Plt Count 250 01/22/21 18:49: Sodium 140, Potassium 4.2, BUN 11, Creatinine 0.90, Glucose 91, Magnesium 2.3, Total Bilirubin 0.4, AST 13 L, ALT 15, Alkaline Phosphatase 95 Assessment and Plan - Problems (Diagnosis) (1) Acute diastolic heart failure Current Visit: Yes Status: Acute Plan: START LASIX BID AND KCL BID. ECHO WITH DOPPLER MOST LIKELY DIASTOLIC HEART FAILURE. RO NEED OF CATH AGAIN. CONSULT DR. RAMACHANDRAN. (2) Coronary artery disease Onset Date: 06/12/14 Current Visit: No Status: Chronic Qualifiers: Coronary Disease-Associated Artery/Lesion type: [place] artery - Advance Directives Does patient have a Living Will: No Does patient have a Durable POA for Healthcare: No
[2021-01-23] MEDS: LOSARTAN POTASSIUM 50 MG TABLET PO SCH (13:48)
[2021-01-23] MEDS: FUROSEMIDE 20 MG/ 2ML VIAL IV SCH (16:55)
--- NOTE | 2021-01-23 17:26 | CON ---
Date of Consultation: 01/23/2021 Reason For Consultation: Shortness of breath. History Of Present Illness: This is an elderly female, known history of coronary artery disease, sta tus post cardiac stents in 2013, hypertension, COPD, presented with worsening shortness of breath ove r the past 2 weeks. She cannot take any deep breath as it causes discomfort on the left rib cage sunny ng with shortness of breath. She said moving inside her house from room to room will make her short winded. Denies having any significant orthopnea, but she has lower extremity edema. Past Medical History: As outlined above in the HPI. Medications: Refer to reconciliation sheet for detailed list. Allergies: NO KNOWN DRUG ALLERGIES. Family History: No premature coronary artery disease. Social History: She is an ex-smoker. Does not drink or use any drugs. Review of Systems: All systems reviewed and they were negative except for mentioned in the HPI. Physical Examination: Vital Signs: Temperature is 97.0, pulse is 93, breathing at 17, blood pressure 137/78, saturating 91 % on room air. General: Pleasant elderly female, no apparent distress. Head and Neck: Pupils are equal, reactive to light. Intact eye movements. No JVD. No cervical lym phadenopathy. Neck: Supple. Thyroid is not enlarged. Lungs: Decreased breathing sounds bilaterally with faint crackles in the bases. No accessory muscle use or muscle retraction. Heart: Regular rate and rhythm. No extra sounds. Abdomen: Soft, nontender. Bowel sounds positive. No organomegaly. No masses or hernia. No rigidi ty or rebound. Extremities: Trace edema bilaterally. No clubbing, cyanosis. Intact pulses. Skin: No rash. Neurologic: Alert, awake, oriented x3. No acute focal deficits appreciated. Investigations: Troponins are negative. NT-proBNP was 5271. Creatinine is 0.9. Hemoglobin is 11.2 . Had a CTA of the chest, no PE, but there is pleural effusion and possible mild edema. Assessment And Recommendations: Shortness of breath, likely representing acute on chronic congestive heart failure exacerbation. Recent ejection fraction is unknown. Agree with IV diuretics. Increas e Lasix to 40 mg IV q.12 hours and monitor BUN, creatinine, electrolytes, and also please obtain echo cardiogram with further recommendations to follow. The patient is already on aspirin and please tren d at least 1 more set of cardiac enzymes. The patient claims that she had a negative stress test wit hin the past [address] Lara. We will discuss this further with him and get the records fro m the office. Thank you for the consult. NANCY Voice ID: [id number] Report ID: [id number]
[2021-01-23] MEDS: TRAZODONE 50 MG TABLET PO SCH (20:54)
[2021-01-23] MEDS: POTASSIUM CL SA 10 MEQ TAB PO SCH (20:54)
[2021-01-24 05:55] LABS: Absolute Lymphocytes (CBC) 1.1 K/uL (0.7-4.9); Basophils % 0.2 % (0-1.3); Hematocrit 34.2 % (36.0-45.0); MPV 8.3 fL (7.6-11.3); RBC Red Blood Cell Count 4.47 M/uL (3.86-4.86)
[2021-01-24] MEDS: LEVOTHYROXINE SOD 0.1 MG TAB PO SCH (06:02)
[2021-01-24 06:22] LABS: Potassium 3.8 mmol/L (3.5-5.1)
[2021-01-24 07:31] LABS: Blood Morphology Comment NOTED (NOT SEEN); Elliptocytes 1+; Platelet Estimate ADEQ; Polychromasia SLIGHT; White Blood Cell Scan OK (OK)
[2021-01-24] MEDS: FUROSEMIDE 20 MG/ 2ML VIAL IV SCH ×2 (08:38→16:48)
[2021-01-24] MEDS: DULOXETINE 30 MG CAP PO SCH (08:40)
[2021-01-24] MEDS: ASPIRIN EC 81 MG TAB PO SCH (08:40)
[2021-01-24] MEDS: ATORVASTATIN 10 MG TAB PO SCH (08:40)
[2021-01-24] MEDS: BUPROPION HCL XL 150 MG TAB PO SCH (08:40)
[2021-01-24] MEDS: LOSARTAN POTASSIUM 50 MG TABLET PO SCH (08:40)
[2021-01-24] MEDS: ALBUTEROL SULFATE IH SCH ×4 (08:41→21:00)
[2021-01-24] MEDS: IPRATROPIUM IH SCH ×4 (08:41→21:00)
[2021-01-24] MEDS: HOME MED 1 EA UNK (Fluticasone/Umeclidin/Vilanter [Trelegy Ellipta 100-62.5-25] Blst.W.Dev IH SCH (08:41)
[2021-01-24] MEDS: [UNRECOGNIZED DRUG - OTHER] IH SCH ×4 (08:41→21:00)
[2021-01-24] MEDS: POTASSIUM CL SA 10 MEQ TAB PO SCH ×2 (08:57→22:01)
[2021-01-24] MEDS: levoFLOXacin 500 MG TAB PO SCH (08:57)
--- NOTE | 2021-01-24 13:13 | P.PN ---
Subjective Date of Service: 01/24/21 Chief Complaint: SHORT OF BREATH Subjective: Improving SHE FEELS BETTER. BREATHING HAS IMPROVED. SHE HAS NO CHEST PAIN. NO FEVER, NO COUGH. DAUGHTER CALLED AND I GAVE HER UPDATE. Review of Systems 10-point ROS is otherwise unremarkable General: Weakness Respiratory: Shortness of Breath Physical Examination - Vital Signs Temperature: 96.9 F Blood Pressure: 106/63 Pulse: 76 Respirations: 20 Pulse Ox (%): 95 - Physical Exam General: Oriented x3, Mild distress HEENT: Atraumatic, PERRLA, EOMI Neck: Supple, JVD not distended Respiratory: Clear to auscultation bilaterally, Normal air movement Cardiovascular: Regular rate/rhythm Gastrointestinal: Normal bowel sounds, No tenderness Musculoskeletal: No tenderness Integumentary: No rashes Neurological: Normal speech, Normal tone, Normal affect Lymphatics: No axilla or inguinal lymphadenopathy - Studies Medications List Reviewed: Yes Assessment And Plan - Current Problems (Diagnosis) (1) Acute diastolic heart failure Current Visit: Yes Status: Acute Plan: START LASIX BID AND KCL BID. ECHO WITH DOPPLER MOST LIKELY DIASTOLIC HEART FAILURE. RO NEED OF CATH AGAIN. CONSULT DR. RAMACHANDRAN. ECHO PENDING . CONT LASIX BP JUST ENOUGH NOT TO TOLERATE MORE LASIX DOSE. (2) Coronary artery disease Onset Date: 06/12/14 Current Visit: No Status: Chronic Qualifiers: Coronary Disease-Associated Artery/Lesion type: [place] artery (3) Hypoxia Current Visit: Yes Status: Acute Plan: D DIMER HIGH. CT PULMONARY ANGIOGRAM STAT TODAY.
--- NOTE | 2021-01-24 14:17 | RAD REPORT ---
EXAM DESCRIPTION: CT - Chest For Pe Angio - 01/24/2021 2:01 pm CLINICAL HISTORY: Chest pain. elevated D Dimer COMPARISON: Chest For Pe Angio dated 01/22/2021; Chest Single View dated 01/22/2021 TECHNIQUE: CT angiogram of the pulmonary arteries was performed with MIP. All CT scans are performed using dose optimization technique as appropriate and may include automated exposure control or mA/KV adjustment according to patient size. FINDINGS: No evidence of pulmonary thromboembolism. The root of the aorta measures 4.2 cm in anterior-posterior dimension. Somewhat suboptimal contrast b olus opacification of the aorta is seen for assessment. The lungs are mildly emphysematous with mild atelectasis in both lung bases, greater on the right. Small right pleural effusion is present. No concerning bony finding. IMPRESSION: No evidence of pulmonary thromboembolism. Atelectasis is present in both lung bases, greater on the right with a small right pleural effusion.
[2021-01-24] MEDS: ENOXAPARIN 40 MG/0.4 ML SQ SCH (20:00)
[2021-01-24 21:47] VITALS: O2SAT 97
[2021-01-24] MEDS: TRAZODONE 50 MG TABLET PO SCH (22:01)
[2021-01-25 05:41] LABS: Absolute Lymphocytes (CBC) 0.9 K/uL (0.7-4.9); Basophils % 1.1 % (0-1.3); Hematocrit 32.9 % (36.0-45.0); Lymphocytes % 11.9 % (15.3-44.8); RBC Red Blood Cell Count 4.31 M/uL (3.86-4.86)
[2021-01-25 05:59] LABS: Potassium 4.1 mmol/L (3.5-5.1)
[2021-01-25] MEDS: LEVOTHYROXINE SOD 0.1 MG TAB PO SCH (06:27)
[2021-01-25] MEDS: ALBUTEROL SULFATE IH SCH (09:00)
[2021-01-25] MEDS: HOME MED 1 EA UNK (Fluticasone/Umeclidin/Vilanter [Trelegy Ellipta 100-62.5-25] Blst.W.Dev IH SCH (09:00)
[2021-01-25] MEDS: [UNRECOGNIZED DRUG - OTHER] IH SCH (09:00)
[2021-01-25] MEDS: IPRATROPIUM IH SCH (09:00)
--- NOTE | 2021-01-25 10:49 | RAD REPORT ---
EXAM DESCRIPTION: US - Extrem Venous W Compress Sebastian - 01/25/2021 10:23 am CLINICAL HISTORY: Below the swelling x2 weeks COMPARISON: None. TECHNIQUE: Real-time sonographic evaluation of the bilateral lower extremity deep venous systems was performed. FINDINGS: Normal compressibility, flow augmentation, phasic flow and spontaneous flow is identified in both the left and right lower extremity deep venous systems. No intraluminal filling defects seen. IMPRESSION: No DVT in either lower extremity.
--- NOTE | 2021-01-25 10:53 | RAD REPORT ---
EXAM DESCRIPTION: US - Urinary Bladder - 01/25/2021 10:22 am CLINICAL HISTORY: RETENTION OF URINE. COMPARISON: No comparisons FINDINGS: Postvoid residual 106 cc. Bladder is otherwise unremarkable. The bladder was incompletely distended. IMPRESSION: Mildly increased post void residual that would suggest mild urinary retention.
--- NOTE | 2021-01-25 10:54 | RAD REPORT ---
EXAM DESCRIPTION: US - Abdomen Exam Complete - 01/25/2021 10:22 am CLINICAL HISTORY: Left-sided pain COMPARISON: None. FINDINGS: Gallbladder size is normal. Cholelithiasis. No gallbladder wall thickening. Common bile du ct is normal with no common duct stone identified. The liver and spleen show no suspicious findings. The pancreas is normal. Trace ascites. No hydronephrosis or suspicious mass in either kidney Aorta is normal is size.. IMPRESSION: Cholelithiasis without sonographic evidence of acute cholecystitis. Trace ascites
[2021-01-25] MEDS: BUPROPION HCL XL 150 MG TAB PO SCH (11:17)
[2021-01-25] MEDS: ASPIRIN EC 81 MG TAB PO SCH (11:17)
[2021-01-25] MEDS: DULOXETINE 30 MG CAP PO SCH (11:17)
[2021-01-25] MEDS: LOSARTAN POTASSIUM 50 MG TABLET PO SCH (11:18)
[2021-01-25] MEDS: FUROSEMIDE 20 MG/ 2ML VIAL IV SCH (11:18)
[2021-01-25] MEDS: ATORVASTATIN 10 MG TAB PO SCH (11:18)
[2021-01-25] MEDS: levoFLOXacin 500 MG TAB PO SCH (11:18)
[2021-01-25] MEDS: POTASSIUM CL SA 10 MEQ TAB PO SCH (11:18)
[2021-01-25] MEDS: ENOXAPARIN 40 MG/0.4 ML SQ SCH (11:19)
--- NOTE | 2021-01-25 12:20 | RAD REPORT ---
EXAM DESCRIPTION: MRI - Brain Wo Cont - 01/25/2021 11:59 am COMPARISON: None. TECHNIQUE: Sagittal T1-weighted images were obtained along with PD/heavily T2-weighted and T2-FLAIR images. Axial DWI and ADC mapping sequences were also obtained along with coronal heavily T2-weighted images were obtained. FINDINGS: No intracranial hemorrhage, mass or acute infarction. There is no edema or shift of midlin e structures. No extra-axial fluid collections. Null-matter/white matter junction is preserved. Signa l voids are seen as a normal finding in the major intracranial vessels. Age advanced cerebral atrophy , also present on prior MRI, with mild interval increased volume loss. A few T2/FLAIR hyperintense fo ci are present within the subcortical and deep white matter which are within normal limits for patien t's age. Mastoid air cells and paranasal sinuses are clear. IMPRESSION: No acute intracranial abnormality. Mild increased atrophy, otherwise no significant rosales ge.
[2021-01-25 12:24] VITALS: BP 135/76; TEMP 97.6
--- NOTE | 2021-01-25 21:24 | P.DS ---
Admission Date: 01/24/21 Discharge Date: 01/25/21 Disposition: ROUTINE DISCHARGE Discharge Condition: FAIR Reason for Admission: SHORT OF BREATH - Problems (1) Acute diastolic heart failure Status: Acute (2) Coronary artery disease Onset Date: 06/12/14 Status: Chronic Qualifiers: Coronary Disease-Associated Artery/Lesion type: o[place] artery (3) Hypoxia Status: Acute Brief History of Present Illness: JERRICA HAS BEEN DYSPNEIC WIT EXERCSION FOR 3 WEEKS. CXR SHOWED INFILTERATE BUT ACTUALLY SHE DOES NOT HAVE COUGH, FEVER, SPUTUM ETC. HER COVID TEST IS NEGATIVE. SHE HAS KNOWN CAD WITH STENTS. Hospital Course: MS. WORKMAN IS A LOT BETTER WITH IV DIURETICS. SHE HAD DIASTOLIC ACUTE HEART FAILURE. CT SHOWS CHF AND PLEURAL EFFUSION. ECHO REPORT PENDING. D DIMER WAS HIGH BUT CT ANGIO GRAM AND DOPPLER NEG. SHE HAS NO OTHER FOCAL SYMPTOMS. LAST DAY SHE COMPLAINED OF R WORSHIP TINGLING. MRI OF BRAIN IS NEGATIVE. THIS MAY BE FROM ANXIETY SHE IS CHRONICALLY ANXIOUS. Vital Signs/Physical Exam: Temp Pulse Resp BP Pulse Ox 97.6 F 84 18 135/76 94 01/25/21 12:00 01/25/21 12:00 01/25/21 12:00 01/25/21 12:00 01/25/21 12:00 Laboratory Data at Discharge: WBC 7.50 K/uL (4.3-10.9) D 01/25/21 05:07 Hgb 10.6 g/dL (12.0-15.0) L 01/25/21 05:07 Hct 32.9 % (36.0-45.0) L 01/25/21 05:07 Plt Count 255 K/uL (152-406) 01/25/21 05:07 PT 13.0 SECONDS (9.5-12.5) H 01/22/21 18:49 INR 1.13 01/22/21 18:49 Sodium 139 mmol/L (136-145) 01/25/21 05:07 Potassium 4.1 mmol/L (3.5-5.1) 01/25/21 05:07 BUN 18 mg/dL (7-18) 01/25/21 05:07 Creatinine 1.00 mg/dL (0.55-1.3) 01/25/21 05:07 Glucose 85 mg/dL (74-106) 01/25/21 05:07 Magnesium 2.3 mg/dL (1.8-2.4) 01/22/21 18:49 Total Bilirubin 0.4 mg/dL (0.2-1.0) 01/22/21 18:49 AST 13 U/L (15-37) L 01/22/21 18:49 ALT 15 U/L (12-78) 01/22/21 18:49 Alkaline Phosphatase 95 U/L (45-117) 01/22/21 18:49 Troponin I 0.03 ng/mL (0.0-0.045) 01/23/21 03:56 Home Medications: Bupropion *Xl* [Wellbutrin XL*] 300 mg PO DAILY 06/11/14 Ipratropium/Albuterol Sulfate [Combivent Respimat Inhal Daykin] 1 puff IH QID 06/11/14 Levothyroxine Sodium [Synthroid] 100 mcg PO DAILY 06/11/14 Trazodone [Desyrel*] 50 mg PO DAILY 06/11/14 Aspirin [Ecotrin 81 MG] 81 mg PO DAILY #30 tablet. 06/13/14 Atorvastatin Calcium [Lipitor*] 10 mg PO DAILY 01/23/21 Duloxetine HCl [Cymbalta] 60 mg PO DAILY 01/23/21 Fluticasone/Umeclidin/Vilanter [Trelegy Ellipta 100-62.5-25] 1 puff IH DAILY 01/23/21 Furosemide 20 mg PO DAILY #90 tablet 01/25/21 Spironolactone 25 mg PO DAILY #90 tablet 01/25/21 levoFLOXacin [Levaquin*] 500 mg PO DAILY #5 tab 01/25/21 New Medications: Furosemide 20 mg PO DAILY #90 tablet levoFLOXacin [Levaquin*] 500 mg PO DAILY #5 tab Spironolactone 25 mg PO DAILY #90 tablet Physician Discharge Instructions: PROBLEM: Heart Failure, Dyspnea GOAL: Clear understanding of disease process E-scripts sent to [facility] in [place]. INSTRUCTIONS: - Follow up with Dr. Velasco in 1-2 weeks. - Take your new medications as ordered. - Weigh yourself daily and keep a record of your weight. If you gain 3 or more pounds in 1 week, contact your physician. - Your MRI was okay. - Return to the ER if your symptoms worsen. - Call the 2nd floor at if you have any questions regarding your hospital stay. Diet: Heart healthy, Low sodium Activity: As tolerated IMMUNIZATION Influenza Vaccine Indicated: Influenza Vaccine Given: Date Given: Pneumonia Vaccine Indicated: Yes Pneumonia Vaccine Given: Yes Date Given: 01/23/21 Followup: Bakari Velasco MD [Primary Care Provider] - 1-2 Weeks (Follow up in office in 1-2 weeks. Call to schedule an appointment. )
--- NOTE | 2021-01-26 08:15 | ECHO ---
HEIGHT: 5 ft 2 in WEIGHT: 191 lb 6 oz DATE OF STUDY: 01/25/[address]: Bakari Velasco MD 2-DIMENSIONAL: YES M.MODE: YES DOPPLER: YES COLOR FLOW: YES TDS: PORTABLE: DEFINITY: BUBBLE STUDY: DIAGNOSIS: CONGESTIVE HEART FAILURE CARDIAC HISTORY: CATHERIZATION: SURGERY: PROSTHETIC VALVE: PACEMAKER: MEASUREMENTS (cm) DIASTOLIC (NORMALS) SYSTOLIC (NORMALS) IVSd 1.2 (0.6-1.2) LA Diam 3.3 (1.9-4.0) LVEF 69% LVIDd 5.3 (3.5-5.7) LVIDs 3.3 (2.0-3.5) %FS 39% LVPWd 1.2 (0.6-1.2) Ao Diam 3.2 (2.0-3.7) 2 DIMENSIONAL ASSESSMENT: RIGHT ATRIUM: NORMAL LEFT ATRIUM: NORMAL RIGHT VENTRICLE: NORMAL LEFT VENTRICLE: NORMAL TRICUSPID VALVE: NORMAL MITRAL VALVE: NORMAL PULMONIC VALVE: NORMAL AORTIC VALVE: NORMAL PERICARDIAL EFFUSION: NONE AORTIC ROOT: NORMAL LEFT VENTRICULAR WALL MOTION: DECREASED LEFT VENTRICULAR COMPLIANCE DOPPLER/COLOR FLOW: DECREASED LEFT VENTRICULAR COMPLIANCE COMMENTS: DIASTOLIC DYSFUNCTION - GRADE I. NORMAL EJECTION FRACTION. NO EFFUSION. TECHNOLOGIST: DONA MENDES
--- NOTE | 2021-01-27 11:18 | PN ---
Date of Progress Note: 01/24/2021 Ms. Spann was admitted and seen by Dr. Rivera and Dr. Velasco for atypical chest pain and shortness of b reath. Echocardiogram showed grade 1 diastolic dysfunction with normal ejection fraction of 69%. Brandon de la torre recently had a stress test in the office that was unremarkable. She is pain-free, shortness of sahra ath free and I am comfortable with her going home and I will see her in the office in the near future . Her present regimen includes aspirin, Lipitor. She is on Lovenox and Lasix, losartan. At home thelma sy takes the same medication. She also takes some Ellipta inhalers, trazodone, spironolactone, and Sy nthroid. I would continue her present regimen. Case was discussed with Dr. Velasco. JAZZMINE/LUL Voice ID: [id number] Report ID: [id number]
== END 2021-01-25 14:10 | disposition home or self-care (01) | DRG 291 ==
LOC: ER 17:15 → 2ND 01-23 00:40 → OBSVTOIN 01-24 07:40
PROVIDERS: ADMIT Internal Medicine; ATTEND Internal Medicine
DX: I11.0 Hypertensive heart disease with heart failure (principal); I50.31 Acute diastolic (congestive) heart failure; I25.10 Atherosclerotic heart disease of native coronary artery without angina pectoris; J44.9 Chronic obstructive pulmonary disease, unspecified; R09.02 Hypoxemia; Z95.5 Presence of coronary angioplasty implant and graft; Z87.891 Personal history of nicotine dependence; Z20.822 Contact with and (suspected) exposure to COVID-19
CPT/HCPCS: 36415; 70551; 71045; 71275; 76700; 76857; 80048; 80076; 83605; 83735; 83880; 84145; 84484; 85025; 85379; 85610; 87040; 90471; 90732; 93005; 93306; 93970; 96365; 96366; 96375; 99285; G0378; J1650; J1940; J2930; J3475; Q9967; U0003

== ENCOUNTER 2021-06-29 17:50 | Inpatient (IN) | payer OTHER ==
--- OUTSIDE RECORDS SUMMARY | 2021-06-29 17:53 | XMS REPORT | Continuity of Care Document ---
:1950 Author Organization [facility] t Address [address] [place] [address] Care Team Providers Name Role Phone Annalisa Orellana MD Attending Clinician Annalisa ORELLANA Attending Clinician Unavailable Payers Payer Name Policy Type Policy Number Effective Date Expiration Date Josue drew MEDICARE PART A [id number] 2015 \T\ B 00:00:00 [employer] INDEMNITY [id number] 2015 00:00:00 Problems This patient has no known problems. Allergies, Adverse Reactions, Alerts Allergy Allergy Status Severity Reaction(s) Onset Inactive Treating Comm ents Source Name Type Date Date Clinician NO KNOWN Drug Active Univers ALLERGIE Class ity of [facility] Social History Social Habit Start Date Stop Date Quantity Comments Source Sex Assigned At [facility] Exposure to Not sure [facility] SARS-CoV-2 (event) Medica l Branch Alcohol intake 2020-01-09 2020-01-09 [facility] 00:00:00 00:00:00 [facility] Smoking Status Start Date Stop Date Source Former smoker 2020-01-09 00:00:00 2020-01-09 00:00:00 [facility] Medications Ordered Filled Start Stop Current Ordering Indication Dosage Frequency Signature Comments Components Source Medication Medication Date Date Medication? Clinician (SIG) Name Name cefUROXime Yes Univers 250 mg 7-06 ity of tablet 00:00: [address] cefUROXime Yes Univers 250 mg 7-06 ity of tablet 00:00: [address] TRELEGY Yes INHALE 1 Univer s ELLIPTA 6-29 PUFF BY ity of 100-62.5-25 00:00: INHALATION [place] mcg DsDv 00 ROUTE Medical EVERY DAY Branch AT THE SAME TIME EACH DAY TRELEGY 2020-0 Yes INHALE 1 Univer s ELLIPTA 6-29 PUFF BY ity of 100-62.5-25 00:00: INHALATION [place] mcg DsDv 00 ROUTE Medical EVERY DAY Branch AT THE SAME TIME EACH DAY buPROPion 2020-0 Yes 300mg Take 300 Uni vers XL 300 mg 6-20 mg by ity of 24 hr 00:00: mouth [place] tablet 00 every Medical morning. Branch buPROPion 2020-0 Yes 300mg Take 300 Uni vers XL 300 mg 6-20 mg by ity of 24 hr 00:00: mouth [place] tablet 00 every Medical morning. Branch atorvastati 2020-0 Yes Univer s n 10 mg 6-16 ity of tablet 00:00: [place] [facility] levothyroxi 2020-0 Yes Univer s ne 100 mcg 6-16 ity of tablet 00:00: [place] [facility] atorvastati 2020-0 Yes Univer s n 10 mg 6-16 ity of tablet 00:00: [place] [facility] levothyroxi 2020-0 Yes Univer s ne 100 mcg 6-16 ity of tablet 00:00: [place] [facility] methylpheni 2020-0 Yes 10mg Take 10 mg Univers date HCl 10 6-02 by mouth 2 it y of mg tablet 00:00: (two) [place] times Medical daily. Branch methylpheni 2020-0 Yes 10mg Take 10 mg Univers date HCl 10 6-02 by mouth 2 it y of mg tablet 00:00: (two) [place] times Medical daily. Branch DULoxetine 2020-0 Yes 60mg Take 60 mg U nivers 60 mg 6-01 by mouth ity of capsule 00:00: daily. [place] [facility] DULoxetine 2020-0 Yes 60mg Take 60 mg U nivers 60 mg 6-01 by mouth ity of capsule 00:00: daily. [place] [facility] spironolact 2020-0 Yes 25mg Take 25 mg Univers one 25 mg 5-30 by mouth ity of tablet 00:00: daily. [place] [facility] spironolact 2020-0 Yes 25mg Take 25 mg Univers one 25 mg 5-30 by mouth ity of tablet 00:00: daily. Medical Branch traZODone 2020-0 Yes TAKE 1 Univer s 50 mg 4-27 TABLET BY ity of tablet 00:00: MOUTH EVERY Medical EVENING Branch NEEDED traZODone 2020-0 Yes TAKE 1 Univer s 50 mg 4-27 TABLET BY ity of tablet 00:00: MOUTH EVERY Medical EVENING Branch NEEDED Vital Signs Vital Name Observation Time Observation Value Comments Source Systolic blood 2020-01-09 21:25:00 141 mm[Hg] Univer sity of pressure [facility] Branch Diastolic blood 2020-01-09 21:25:00 68 mm[Hg] Unive rsity of pressure [facility] Heart rate 2020-01-09 21:25:00 70 /min Universi ty of [facility] Body temperature 2020-01-09 20:43:00 36.72 Stephanie Univ ersity of [facility] Respiratory rate 2020-01-09 20:43:00 18 /min Univ ersity of [facility] Body height 2020-01-09 20:43:00 157.5 cm [facility] [place] [facility] Body weight 2020-01-09 20:43:00 91.627 kg [facility] [place] [facility] BMI 2020-01-09 20:43:00 36.95 kg/m2 Universi ty of [facility] Systolic blood 2020-01-09 21:25:00 141 mm[Hg] Univer sity of pressure [facility] Diastolic blood 2020-01-09 21:25:00 68 mm[Hg] Unive rsity of pressure [facility] Heart rate 2020-01-09 21:25:00 70 /min Universi ty of [facility] Body temperature 2020-01-09 20:43:00 36.72 Stephanie Univ ersity of [facility] Respiratory rate 2020-01-09 20:43:00 18 /min Univ ersity of [facility] Body height 2020-01-09 20:43:00 157.5 cm [facility] [place] [facility] Body weight 2020-01-09 20:43:00 91.627 kg [facility] [place] [facility] BMI 2020-01-09 20:43:00 36.95 kg/m2 Universi ty of [facility] Procedures This patient has no known procedures. Encounters Start End Encounter Admission Attending Care Care Encounter Source Date/Time Date/Time Type Type Clinicians Facility Department ID 2020-09-11 2020-09-11 Outpatient [facility] [id number] Univers 09:30:00 09:30:00 ity [facility] 2020-08-21 2020-08-21 Outpatient [facility] [id number] Univers 10:40[facility] 2020-01-[facility] 2020-01-09 Office [facility] [id number] 15:19:18 16:43:19 Visit Nicolette Guy [id number] [place] [id number] Professio [phone] [address] 2020-01-09 2020-01-09 Office [facility] [id number] Univers 15:19:18 16:43:19 Visit Nicolette Guy [id number] itjuana [place] [id number] Jose Antonio mnotez Professio [phone] [place] [facility] [address] 2020-01-09 2020-01-09 Outpatient R REYNA, [facility] [id number] Univers 15:00:00 15:00:00 NICOLETTE [facility] Results This patient has no known results.
[2021-06-29 22:16] LABS: Arterial Blood Carboxyhemoglob 1.3 % (0-1.5); Blood O2 Saturation 89.9 % (92-98.5)
[2021-06-29 22:43] LABS: Albumin 3.2 g/dL (3.4-5.0); Bilirubin Direct 0.3 mg/dL (0-0.2); Bilirubin Total 0.9 mg/dL (0.2-1.0); C-Reactive Protein 93.4 mg/L (<3.00); Magnesium 2.1 mg/dL (1.8-2.4); Potassium 3.7 mmol/L (3.5-5.1); Protein, Total 6.3 g/dL (6.4-8.2); Troponin (Emerg Dept Use Only) 0.33 ng/mL (0.0-0.045)
[2021-06-29 22:55] LABS: Hematocrit 41.7 % (36.0-45.0); Lymphocytes % 10.9 % (15.3-44.8); Protime INR 1.12; RBC Red Blood Cell Count 5.18 M/uL (3.86-4.86)
[2021-06-29 23:23] LABS: SARS-COV-2 RT PCR POSITIVE (NEGATIVE)
[2021-06-30 00:16] LABS: Anisocytosis 1+; Blood Morphology Comment NOTED (NOT SEEN); Platelet Estimate ADEQ; White Blood Cell Scan OK (OK)
[2021-06-30] MEDS ORDERED: dexAMETHasone 10 MG/ML VIAL ONE (02:23)
[2021-06-30] MEDS ORDERED: AZITHROMYCIN 500 MG INJ IVPB ONE (02:23)
[2021-06-30] MEDS ORDERED: NA CHLORIDE 0.9% 1,000 ML ONE ×2 (02:24→05:52)
--- NOTE | 2021-06-30 04:07 | ER ---
Nurse's Notes [facility] Name: Lachelle Spann Age: 70 yrs Sex: Female : 1950 Arrival Date: 06/29/2021 Time: 17:54 Bed 20 Private MD: Diagnosis: Covid pneumonia. Hypoxia. Elevated Troponin. Suspect thrombi within the right atrial appendage Presentation: 06/29 18:40 Chief complaint: Patient states: COPD and COVID - Upon arrival to ER pt was 87% RA. Pt ld1 put on 2L NC - SpO2 99%. Coronavirus screen: Client presents with at least one sign or symptom that may indicate coronavirus-19. Standard/surgical mask placed on the client. Ebola Screen: No symptoms or risks identified at this time. Initial Sepsis Screen: Does the patient meet any 2 criteria? No. Patient's initial sepsis screen is negative. Does the patient have a suspected source of infection? No. Patient's initial sepsis screen is negative. Risk Assessment: Do you want to hurt yourself or someone else? Patient reports no desire to harm self or others. Onset of symptoms was June 29, 2021. 18:40 Method Of Arrival: Wheelchair ld1 18:40 Acuity: DORA 2 ld1 Triage Assessment: 18:41 General: Appears in no apparent distress. comfortable, Behavior is calm, cooperative, ld1 appropriate for age. Pain: Denies pain. Neuro: Level of Consciousness is awake, alert, obeys commands, Oriented to person, place, time, situation. Respiratory: Airway is patent Respiratory effort is even, unlabored, Respiratory pattern is regular, symmetrical. Historical: - Allergies: 18:41 No Known Allergies; ld1 - PMHx: 18:41 allergies; Depression; COPD; GERD; ld1 - PSHx: 18:41 None; ld1 - Immunization history:: Adult Immunizations up to date, Client reports receiving the 2nd dose of the Covid vaccine, moderna. - Social history:: Smoking status: Patient denies any tobacco usage or history of. Patient/guardian denies using alcohol. Screenin:17 Abuse screen: Denies threats or abuse. Denies injuries from another. Nutritional ic1 screening: No deficits noted. Tuberculosis screening: No symptoms or risk factors identified. Fall Risk None identified. Assessment: 22:17 General: Appears in no apparent distress. Behavior is calm, cooperative, anxious. Pain: ic1 Denies pain. Neuro: No deficits noted. Cardiovascular: No deficits noted. Respiratory: Reports shortness of breath cough that is labored breathing Pt has hx of COPD. Tested pos for covid on today at pcp's office. C/o cough and increased sob. GI: No deficits noted. : No deficits noted. EENT: No deficits noted. Derm: No deficits noted. Musculoskeletal: No deficits noted. 06/30 00:37 Reassessment: Patient and/or family updated on plan of care and expected duration. Pain ic1 level reassessed. Patient is alert, oriented x 3, equal unlabored respirations, skin warm/dry/pink. Pt left and stated he needed to get home. Emil, . Patient denies pain at this time. 00:37 Reassessment: Unable to obtain urine specimen at this time. Pt amb to bathroom w steady ic1 gait, c/o sob. Assisted back to room and placed back on cont monitoring and cont O2. Pt tolerated. SOB relieved. 02:02 Reassessment: Pt transsported to CT via stretcher. Tolerated. ic1 07/02 20:43 General: I recv'd the pt \\T\\ 1845. She remains an ICU hold. She is AAOx3, with a hx of thuy Covid pneumonia, possible thrombus to her atrial appendage, COPD. She does not have a bed in her room, as she prefers to sit up. She is a full code. She transfers with assist to the bsc. She has mottling to her bilateral lower extremities. She has a 22 gauge to her Rt. AC and the dressing was changed. Her O2 is at 3L per NC. She receives neb treatments with RT. She acknowledged understanding of S/Sx to report. She is in NAD. Her RR is 26-30. She reports "feeling better" after her treatments. . 23:00 General: The pt requested a "comfortable bed" and one has just arrived. She is having a thuy "little anxiety", but is cooperative. . 07/03 00:02 General: The pt remains anxious, but is very cooperative. I continue trying to quell thuy her anxiety with breathing exercises and comfort measures. . 00:23 General: RT was paged and he came to give the pt a neb tx. . thuy 00:38 General: The pt is resting in her bed after her neb and resting. She remains on the thuy monitor. . 01:00 General: While I took another patient upstairs, the pt removed her leads, dressed thuy herself and was found sitting in the chair. She was much less anxious and reported, as much. VS were improved and the pt was asked to keep the pulse ox on her. She agreed. She appears in NAD, now. . 02:39 General: The pt remains sitting up in the chair, on RA at 97% O2 sat. She is much less thuy anxious. . 04:46 General: The pt is more anxious, so RT was paged for a breathing tx. . thuy 05:04 General: The pt is tolerating her breathing tx and is much less anxious. She reports thuy that the bedside inhaler "doesn't work", as she "can't get it in (her) lungs". . 05:55 General: I spoke with the pt about her code status and reinforced that it was her thuy decision to make, not any one else. She agreed. . 06:29 General: The pt said,"I want someone to call Emil (her ) and tell him to get thuy his ass down here...he doesn't know the situation." She was speaking to her condition. I told her that I would. This will be given in report. . Vital Signs: 06/29 18:40 BP 139 / 88; Pulse 102; Resp 20; Temp 97.8(O); Pulse Ox 99% on 2 lpm NC; Weight 68.04 ld1 kg; Height 5 ft. 2 in. (157.48 cm); Pain 0/10; 22:17 Pulse 99; Resp 26; Pulse Ox 100% on 5 lpm NC; ic1 23:18 BP 148 / 93; Pulse 100; Resp 26; Pulse Ox 96% on 5 lpm NC; ic1 06/30 00:19 BP 126 / 93; Pulse 89; Resp 22; Pulse Ox 100% on 5 lpm NC; ic1 02:48 BP 135 / 86; Pulse 92; Resp 24; Pulse Ox 97% on 5 lpm NC; ic1 03:56 BP 105 / 82; Pulse 96; Resp 22; Pulse Ox 100% on 5 lpm NC; ic1 04:46 BP 114 / 96; Pulse 91; Resp 24; Pulse Ox 98% on 5 lpm NC; ic1 06:12 BP 132 / 87; Pulse 85; Resp 16; Pulse Ox 97% on 5 lpm NC; ic1 07/02 11:19 BP 147 / 97; Pulse 102; Resp 20; Pulse Ox 99% on 4 lpm NC; bautista 13:18 BP 146 / 92; Pulse 109; Resp 20; Pulse Ox 94% on 4 lpm NC; bautista 17:32 BP 105 / 82; Pulse 91; Resp 22; Pulse Ox 97% on 2 lpm NC; bautista 19:00 BP 126 / 92; Pulse 102; Resp 28; Temp 98.8; Pulse Ox 98% 3 lpm ; Pain 0/10; thuy 20:00 BP 128 / 85; Pulse 104; Resp 28; Temp 98.8; Pulse Ox 98% 3 lpm ; Pain 0/10; thuy 21:00 BP 144 / 91; Pulse 103; Resp 22; Pulse Ox 99% 2 lpm ; Pain 0/10; thuy 22:00 BP 152 / 100; Pulse 103; Resp 24; Pulse Ox 100% 2 lpm ; Pain 0/10; thuy 23:00 BP 146 / 98; Pulse 106; Resp 22; Temp 97.6; Pulse Ox 100% on 2 lpm NC; Pain 0/10; thuy 07/03 00:02 BP 152 / 101; Pulse 106; Resp 24; Pulse Ox 100% 3 lpm ; Pain 0/10; thuy 01:00 BP 147 / 103; Pulse 103; Resp 24; Pulse Ox 100% on 2 lpm NC; thuy 03:00 BP 129 / 87; Pulse 102; Resp 24; Pulse Ox 97% on R/A; Pain 0/10; thuy 03:00 BP 137 / 100; Pulse 106; Resp 24; Pulse Ox 96% on R/A; Pain 0/10; thuy 03:00 BP 137 / 100; Pulse 106; Resp 26; Pulse Ox 97% on 1 lpm NC; Pain 0/10; thuy 04:37 BP 146 / 106; Pulse 106; Resp 26; Pulse Ox 95% on R/A; thuy 05:14 BP 147 / 95; Pulse 104; Resp 26; Pulse Ox 99% on 2 lpm NC; thuy 05:54 BP 146 / 102; Pulse 100; Resp 26; Temp 98.6; Pulse Ox 98% on 2 lpm NC; Pain 0/10; thuy 06/29 18:40 Body Mass Index 27.44 (68.04 kg, 157.48 cm) ld1 Vitals: 06/29 22:17 Cardiac Rhythm Assessment Regular Sinus rhythm. ic1 ED Course: 17:54 Patient arrived in ED. ds1 18:41 Triage completed. ld1 18:41 Arm band placed on right wrist. ld1 21:22 Silverio Alfaro MD is Attending Physician. pkl 22:08 XRAY Chest (1 view) In Process Unspecified. EDMS 22:16 COVID-19/FLU A+B Sent. ic1 22:16 COVID-19/FLU A+B (Document "Date of Onset" if Symptomatic) Sent. ic1 22:17 Patient has correct armband on for positive identification. Placed in gown. Bed in low ic1 position. Call light in reach. Side rails up X2. 22:17 Liver (Hepatic) Function Sent. ic1 22:17 Magnesium Sent. ic1 22:17 NT PRO-BNP Sent. ic1 22:17 Protime (+INR) Sent. ic1 22:17 CBC with Automated Diff Sent. ic1 22:17 Basic Metabolic Panel Sent. ic1 22:17 Lactate Sent. ic1 22:17 Procalcitonin Sent. ic1 22:17 CRP Sent. ic1 22:17 Troponin (emerg Dept Use Only) Sent. ic1 22:38 COVID-19/FLU A+B Sent. ic1 23:15 campus monitor on. Pulse ox on. NIBP on. Door closed. Noise minimized. Warm blanket ic1 given. 06/30 00:37 Lights dimmed. ic1 01:32 Inserted saline lock: 22 gauge in right antecubital area, using aseptic technique. lt3 02:17 CT Chest For PE Angio In Process Unspecified. EDMS 02:37 EKG done, by ED staff, reviewed by Silverio Alfaro MD. lt3 02:56 Troponin (emerg Dept Use Only) Sent. ic1 04:03 Bakari Velasco MD is Hospitalizing Provider. pkl 04:04 Lactate Sent. ic1 04:05 Lactate Sent. ic1 08:52 Lizbeth Foster is Primary Nurse. jg9 07/01 00:04 Primary Nurse role handed off by Lizbeth Foster kd3 00:04 Mable Pacheco, RN is Primary Nurse. kd3 09:38 No provider procedures requiring assistance completed. Patient admitted, IV remains in bp place. 07/02 11:20 Troponin I Sent. bautista 11:20 Lipid Profile Sent. bautista 11:20 Basic Metabolic Panel Sent. bautista 11:20 Basic Metabolic Panel Sent. bautista 11:20 CBC with Diff Sent. bautista 11:20 LFT's Sent. bautista 11:20 Magnesium Sent. bautista 11:20 NT PRO-BNP Sent. bautista 11:20 PT-INR Sent. bautista 11:21 Troponin I Sent. bautista 19:17 Primary Nurse role handed off by Mable Pacheco RN cs9 07/03 09:21 role handed off by Emani Segal, RODRIGO eb 09:30 Emani Segal, RN is Primary Nurse. thuy Administered Medications: 06/30 02:42 Dru mg of (Zithromax (azithromycin) 500 mg, NS 0.9% 250 ml) Route: IVPB; Rate: ic1 250 ml/hr; Infused Over: 1 hrs; Site: right forearm; 04:47 Follow up: IV Status: Completed infusion; IV Intake: 230ml ic1 02:47 Drug: NS 0.9% 1000 ml Route: IV; Rate: 1000 ml; Infused Over: 1 hrs; Site: right ic1 femoral; Delivery: Primary tubing; 04:47 Follow up: IV Status: Completed infusion; IV Intake: 1000ml ic1 02:48 Drug: Decadron - Dexamethasone 10 mg Route: IVP; Site: right forearm; ic1 07/01 07:55 Follow up: Response: No adverse reaction bp 06/30 04:32 Drug: Heparin (SD-Bolus No thrombolytic) - HEParin 4082 units {Co-Signature: mr2 (Rene Fritz RN).} Route: IVP; Site: right antecubital; 07/01 07:55 Follow up: Response: No adverse reaction bp 06/30 04:37 Drug: Heparin (SD Drip) 12 units/kg/hr - (HEParin 67763 units, D5W 500 ml) ic1 {Co-Signature: mr2 (Rene Fritz RN).} Route: IV; Rate: 800 units/hr; Site: right antecubital; Delivery: Primary tubing; 07/01 07:55 Follow up: IV Status: Completed infusion bp Intake: 06/30 04:47 IV: 1000ml; Total: 1000ml. ic1 04:47 IV: 230ml; Total: 1230ml. ic1 Output: 07/03 06:32 Urine: 800ml (Voided); Total: 800ml. thuy Outcome: 06/30 04:06 Decision to Hospitalize by Provider. pkl 07/03 02:39 Condition: stable thuy 12:08 Admitted to Med/surg room 413, with oxygen, on monitor. cb5 12:09 Patient left the ED. eb Signatures: Dispatcher [employer] EDMS Silverio Alfaro MD MD pkl Carolyne Hines ds1 Eder Payan RN RN Fe Bell Lauren RN RN ld1 Bibiana Dolan 9 Mable Pacheco RN RODRIGO field3 Kathi Ray Jennifer RN RODRIGO jg9 Emnai Segal RN RODRIGO thuy Au-StagerDelmy RN Adri Valentine RN RN ic1 Jamila Childers RN RN cb5 Rene Fritz RN mr2 Corrections: (The following items were deleted from the chart) 07/02 22:37 19:00 BP 128 / 85; Pulse 104bpm; Resp 30bpm; Pulse Ox 98% 3 lpm; Temp 98.8F; Pain 0/10; thuy thuy 07/03 03:58 01:00 BP 129 / 87; Pulse 102bpm; Resp 24bpm; Pulse Ox 97% RA; Pain 0/10; thuy thuy
--- NOTE | 2021-06-30 04:07 | EDPHYS ---
Physician Documentation [facility] Name: Lachelle Spann Age: 70 yrs Sex: Female : 1950 Arrival Date: 06/29/2021 Time: 17:54 Bed 20 Private MD: ED Physician Silverio Alfaro HPI: 06/29 22:32 This 70 yrs old Female presents to ER via Wheelchair with complaints of Covid + Low O2. pkl 22:32 The patient has shortness of breath at rest. Onset: The symptoms/episode began/occurred pkl 3 day(s) ago, and became worse today. Associated signs and symptoms: Pertinent positives: non-productive cough. Patient said she is scheduled for colonoscopy tomorrow. Had Covid 19 test done earlier today At Dr. Maynard office and that the test is positive. Historical: - Allergies: 18:41 No Known Allergies; ld1 - PMHx: 18:41 allergies; Depression; COPD; GERD; ld1 - PSHx: 18:41 None; ld1 - Immunization history:: Adult Immunizations up to date, Client reports receiving the 2nd dose of the Covid vaccine, moderna. - Social history:: Smoking status: Patient denies any tobacco usage or history of. Patient/guardian denies using alcohol. ROS: 22:32 Eyes: Negative for injury, pain, redness, and discharge, ENT: Negative for injury, pkl pain, and discharge, Neck: Negative for injury, pain, and swelling, Cardiovascular: Negative for chest pain, palpitations, and edema. 22:32 Respiratory: Positive for cough, with no reported sputum, shortness of breath. 22:32 Abdomen/GI: Negative for abdominal pain, nausea, vomiting, and diarrhea. 22:32 Back: Negative for acute changes. 22:32 : Negative for urinary symptoms. 22:32 MS/extremity: Negative for acute changes. 22:32 Skin: Negative for rash. 22:32 Neuro: Negative for altered mental status, loss of consciousness. Exam: 22:32 Head/Face: Normocephalic, atraumatic. Eyes: Pupils equal round and reactive to light, pkl extra-ocular motions intact. Lids and lashes normal. Conjunctiva and sclera are non-icteric and not injected. Cornea within normal limits. Periorbital areas with no swelling, redness, or edema. ENT: Nares patent. No nasal discharge, no septal abnormalities noted. Tympanic membranes are normal and external auditory canals are clear. Oropharynx with no redness, swelling, or masses, exudates, or evidence of obstruction, uvula midline. Mucous membranes moist. Neck: Trachea midline, no thyromegaly or masses palpated, and no cervical lymphadenopathy. Supple, full range of motion without nuchal rigidity, or vertebral point tenderness. No Meningismus. Chest/axilla: Normal chest wall appearance and motion. Nontender with no deformity. No lesions are appreciated. Cardiovascular: Regular rate and rhythm with a normal S1 and S2. No gallops, murmurs, or rubs. Normal PMI, no JVD. No pulse deficits. 22:32 Respiratory: mild respiratory distress is noted, Respirations: labored breathing, Breath sounds: rales, that are mild, are scattered, bronchial sounds, that are mild, are scattered. 22:32 Abdomen/GI: Bowel sounds: active, Palpation: abdomen is soft and non-tender, in all quadrants. 22:32 Back: Exam negative for acute changes. 22:32 : Exam negative for acute changes. 22:32 Musculoskeletal/extremity: Exam is negative for acute changes. 22:32 Skin: Exam negative for rash. 22:32 Neuro: Orientation: is normal, Mentation: is normal, Cranial nerves: grossly normal, Motor: is normal. Vital Signs: 18:40 BP 139 / 88; Pulse 102; Resp 20; Temp 97.8(O); Pulse Ox 99% on 2 lpm NC; Weight 68.04 ld1 kg; Height 5 ft. 2 in. (157.48 cm); Pain 0/10; 22:17 Pulse 99; Resp 26; Pulse Ox 100% on 5 lpm NC; ic1 23:18 BP 148 / 93; Pulse 100; Resp 26; Pulse Ox 96% on 5 lpm NC; ic1 06/30 00:19 BP 126 / 93; Pulse 89; Resp 22; Pulse Ox 100% on 5 lpm NC; ic1 02:48 BP 135 / 86; Pulse 92; Resp 24; Pulse Ox 97% on 5 lpm NC; ic1 03:56 BP 105 / 82; Pulse 96; Resp 22; Pulse Ox 100% on 5 lpm NC; ic1 04:46 BP 114 / 96; Pulse 91; Resp 24; Pulse Ox 98% on 5 lpm NC; ic1 06:12 BP 132 / 87; Pulse 85; Resp 16; Pulse Ox 97% on 5 lpm NC; ic1 0108 11:19 BP 147 / 97; Pulse 102; Resp 20; Pulse Ox 99% on 4 lpm NC; bautista 13:18 BP 146 / 92; Pulse 109; Resp 20; Pulse Ox 94% on 4 lpm NC; bautista 17:32 BP 105 / 82; Pulse 91; Resp 22; Pulse Ox 97% on 2 lpm NC; bautista 19:00 BP 126 / 92; Pulse 102; Resp 28; Temp 98.8; Pulse Ox 98% 3 lpm ; Pain 0/10; thuy 20:00 BP 128 / 85; Pulse 104; Resp 28; Temp 98.8; Pulse Ox 98% 3 lpm ; Pain 0/10; thuy 21:00 BP 144 / 91; Pulse 103; Resp 22; Pulse Ox 99% 2 lpm ; Pain 0/10; thuy 22:00 BP 152 / 100; Pulse 103; Resp 24; Pulse Ox 100% 2 lpm ; Pain 0/10; thuy 23:00 BP 146 / 98; Pulse 106; Resp 22; Temp 97.6; Pulse Ox 100% on 2 lpm NC; Pain 0/10; thuy 07/03 00:02 BP 152 / 101; Pulse 106; Resp 24; Pulse Ox 100% 3 lpm ; Pain 0/10; thuy 01:00 BP 147 / 103; Pulse 103; Resp 24; Pulse Ox 100% on 2 lpm NC; thuy 03:00 BP 129 / 87; Pulse 102; Resp 24; Pulse Ox 97% on R/A; Pain 0/10; thuy 03:00 BP 137 / 100; Pulse 106; Resp 24; Pulse Ox 96% on R/A; Pain 0/10; thuy 03:00 BP 137 / 100; Pulse 106; Resp 26; Pulse Ox 97% on 1 lpm NC; Pain 0/10; thuy 04:37 BP 146 / 106; Pulse 106; Resp 26; Pulse Ox 95% on R/A; thuy 05:14 BP 147 / 95; Pulse 104; Resp 26; Pulse Ox 99% on 2 lpm NC; thuy 05:54 BP 146 / 102; Pulse 100; Resp 26; Temp 98.6; Pulse Ox 98% on 2 lpm NC; Pain 0/10; thuy 06/29 18:40 Body Mass Index 27.44 (68.04 kg, 157.48 cm) ld1 MDM: 06/29 21:22 Patient medically screened. pkl 06/30 04:01 Data reviewed: vital signs, nurses notes, lab test result(s), EKG, radiologic studies, pkl CT scan, plain films. ED course: Talked to Dr. Rod cunningham, admit and consult Dr. Leavitt. 06/29 21:41 Order name: Basic Metabolic Panel pkl 06/29 21:41 Order name: CBC with Diff pkl 06/29 21:41 Order name: LFT's pkl 06/29 21:41 Order name: Magnesium pkl 06/29 21:41 Order name: NT PRO-BNP pkl 06/29 21:41 Order name: PT-INR pkl 06/29 21:41 Order name: Troponin (emerg Dept Use Only); Complete Time: 00:26 pkl 06/29 21:41 Order name: CRP; Complete Time: 00:26 pkl 06/29 21:41 Order name: Lactate; Complete Time: 00:26 pkl 06/29 21:41 Order name: Procalcitonin; Complete Time: 00:26 pkl 06/29 21:41 Order name: Blood Culture Adult (2) pkl 06/29 21:41 Order name: Basic Metabolic Panel; Complete Time: 00:26 EDMS 06/29 21:41 Order name: CBC with Automated Diff; Complete Time: 00:26 EDMS 06/29 21:41 Order name: Liver (Hepatic) Function; Complete Time: 00:26 EDMS 06/29 21:41 Order name: Magnesium; Complete Time: 00:26 EDMS 06/29 21:41 Order name: NT PRO-BNP; Complete Time: 00:26 EDMS 06/29 21:41 Order name: Protime (+INR); Complete Time: 00:26 EDMS 06/29 21:43 Order name: COVID-19/FLU A+B (Document "Date of Onset" if Symptomatic) pkl 06/29 21:43 Order name: COVID-19/FLU A+B; Complete Time: 00:26 EDMS 06/29 21:48 Order name: ABG pkl 06/29 21:48 Order name: ABG Arterial Blood Gas; Complete Time: 22:39 EDMS 06/29 23:13 Order name: CBC Smear Scan; Complete Time: 00:26 EDMS 06/30 01:27 Order name: Troponin (emerg Dept Use Only); Complete Time: 03:24 pkl 06/30 02:01 Order name: Lactate Sepsis 2 HR Follow-up; Complete Time: 02:08 EDMS 06/30 04:01 Order name: Lactate pkl 06/30 04:01 Order name: Lactate; Complete Time: 04:48 EDMS 06/30 04:21 Order name: Ptt, Activated; Complete Time: 19:27 ds4 06/30 04:57 Order name: Basic Metabolic Panel EDMS 06/30 04:57 Order name: Basic Metabolic Panel EDMS 06/30 04:57 Order name: CBC with Automated Diff; Complete Time: 19:27 EDMS 06/29 21:41 Order name: XRAY Chest (1 view); Complete Time: 19:27 pkl 06/29 21:41 Order name: EKG; Complete Time: 21:42 pkl 06/29 21:41 Order name: Cardiac monitoring; Complete Time: 09:40 pkl 06/29 21:41 Order name: EKG - Nurse/Tech; Complete Time: 00:14 pkl 06/29 21:41 Order name: IV Saline Lock; Complete Time: 09:40 pkl 06/29 21:41 Order name: Labs collected and sent; Complete Time: 22:17 pkl 06/29 21:41 Order name: O2 Per Protocol; Complete Time: 22:17 pkl 06/29 21:41 Order name: O2 Sat Monitoring; Complete Time: 22:17 pkl 06/29 21:56 Order name: Urine Dipstick-Ancillary (obtain specimen); Complete Time: 04:59 pkl 06/30 00:30 Order name: CT Chest For PE Angio; Complete Time: 19:27 pkl 06/30 01:27 Order name: EKG; Complete Time: 01:27 pkl 06/30 04:57 Order name: CONS Physician Consult EDMS 06/30 04:57 Order name: Heart Healthy; Complete Time: 11:21 EDMS 06/30 04:57 Order name: Lipid Profile EDMS 06/30 04:57 Order name: Lipid Profile EDMS 06/30 04:57 Order name: Troponin I EDMS 06/30 04:57 Order name: Troponin I EDMS 06/30 04:57 Order name: Troponin I EDMS 06/30 04:57 Order name: Troponin I EDMS 06/30 05:04 Order name: Urine Dipstick-Ancillary; Complete Time: 19:27 EDMS 06/30 15:26 Order name: D-Dimer; Complete Time: 19:27 EDMS 07/02 09:04 Order name: CBC with Automated Diff EDMS 07/02 09:49 Order name: Basic Metabolic Panel EDMS 07/02 09:49 Order name: Magnesium EDMS 07/02 09:50 Order name: Manual Differential EDMS 07/03 12:02 Order name: RAD EDMS Administered Medications: 02:42 Dru mg of (Zithromax (azithromycin) 500 mg, NS 0.9% 250 ml) Route: IVPB; Rate: ic1 250 ml/hr; Infused Over: 1 hrs; Site: right forearm; 04:47 Follow up: IV Status: Completed infusion; IV Intake: 230ml ic1 02:47 Drug: NS 0.9% 1000 ml Route: IV; Rate: 1000 ml; Infused Over: 1 hrs; Site: right ic1 femoral; Delivery: Primary tubing; 04:47 Follow up: IV Status: Completed infusion; IV Intake: 1000ml ic1 02:48 Drug: Decadron - Dexamethasone 10 mg Route: IVP; Site: right forearm; ic1 07/01 07:55 Follow up: Response: No adverse reaction bp 06/30 04:32 Drug: Heparin (HI-Bolus No thrombolytic) - HEParin 4082 units {Co-Signature: mr2 (Rene Fritz RN).} Route: IVP; Site: right antecubital; 07/01 07:55 Follow up: Response: No adverse reaction bp 06/30 04:37 Drug: Heparin (HI Drip) 12 units/kg/hr - (HEParin 86540 units, D5W 500 ml) ic1 {Co-Signature: mr2 (Rene Fritz RN).} Route: IV; Rate: 800 units/hr; Site: right antecubital; Delivery: Primary tubing; 07/01 07:55 Follow up: IV Status: Completed infusion bp Disposition Summary: 06/30/21 04:06 Hospitalization Ordered Hospitalization Status: Inpatient Admission pkl Provider: Bakari Velasco pkl Condition: Stable pkl Problem: new pkl Symptoms: are unchanged pkl Bed/Room Type: Standard pkl Location: Telemetry/MedSurg (Inpatient)(07/03/21 11:01) eb Room Assignment: 413(07/03/21 11:01) eb Diagnosis - Covid pneumonia. Hypoxia. Elevated Troponin. Suspect thrombi within the pkl right atrial appendage Forms: - Medication Reconciliation Form pkl - SBAR form pkl Signatures: Dispatcher [employer] EDMS Silverio Alfaro MD MD pkl Emani Mcnair RN RN Leeann Henley RN RN cg Fe Franks Lauren, RN RN ld1 Adri Frankel RN RN ic1 Eder Payan RN bp Rene Fritz RN mr2 Corrections: (The following items were deleted from the chart) 06/30 21:09 04:06 Intensive Care Unit pkl cg : 04:06 pkl cg 07/03 11:01 06/30 21:09 [facility] ER HOLD cg eb 07/03 11:01 06/30 21:09 ERHOLD- cg eb 07/03 11:01 11:01 eb
[2021-06-30] MEDS ORDERED: HEPARIN/D5W 25,000 UNIT/500 ML BAG IV ONE (04:08)
[2021-06-30] MEDS ORDERED: HEPARIN 5000 UNIT/ML 1 ML VIAL ONE (04:32)
[2021-06-30] MEDS ORDERED: NA CHLORIDE 0.9% 1,000 ML IV SCH (05:00)
[2021-06-30 05:04] LABS: Urine Blood Negative (Negative); Urine Glucose Negative (Negative); Urine Protein 1+ (Negative); Urine Specific Gravity 1.025 (1.005-1.030)
[2021-06-30 05:09] LABS: Absolute Lymphocytes (CBC) 0.4 K/uL (0.7-4.9); Hematocrit 40.7 % (36.0-45.0); Lymphocytes % 6.3 % (15.3-44.8); MPV 9.7 fL (7.6-11.3); RBC Red Blood Cell Count 5.02 M/uL (3.86-4.86)
[2021-06-30 05:29] VITALS: BMI 27.3
--- NOTE | 2021-06-30 07:45 | RAD REPORT ---
EXAM DESCRIPTION: Unique Single View06/29/2021 10:08 pm CLINICAL HISTORY: Shortness of breath COMPARISON: December 2020 FINDINGS: No change in small to moderate right and small left pleural effusions. Mild bilateral pulmonary opacities. Heart remains enlarged IMPRESSION: Mild bilateral pulmonary opacities may represent pulmonary edema or pneumonia Small to moderate right and small left pleural effusions
[2021-06-30] MEDS ORDERED: dexAMETHasone 4 MG/ML VIAL IV SCH (09:00)
[2021-06-30] MEDS ORDERED: APIXABAN 5 MG TABLET ONE ×2 (12:07→20:52)
[2021-06-30] MEDS ORDERED: dexAMETHasone 4 MG TAB ONE (12:07)
--- NOTE | 2021-06-30 12:10 | RAD REPORT ---
EXAM DESCRIPTION: CT - Chest For Pe Angio - 06/30/2021 4:38 am CLINICAL HISTORY: COPD;Dyspnea COMPARISON: None. TECHNIQUE: CT CHEST ANGIOGRAPHY WITH IV CONTRAST on 06/30/2021 12:30 AM BANDER HAND. MIPS reconstructions were generated. This exam was performed according to our departmental dose-optimization program, which includes autom ated exposure control, adjustment of the mA and/or kV according to patient size and/or use of iterati ve reconstruction technique. MIP images were generated. FINDINGS: Thoracic aorta is normal in course and caliber without aneurysm or dissection. Pulmonary a rteries are adequately opacified with poor visualization of branches within the right lower lobe. The heart is borderline in size. There are at least two globular filling defects within the right atr ial appendage with the larger measuring 2.1 cm. These likely represent thrombi. There is no pericardi al effusion. Intrathoracic lymph nodes are not enlarged. There is a small to moderate right pleural effusion. There is a small left pleural effusion. Central airways are patent. There is bibasilar airspace disease with mild patchy involvement of the right upp er lobe and left upper lobe. There are no acute abnormalities within the limited images of the upper abdomen. There are no acute osseous findings. No suspicious bony lesions. IMPRESSION: No aortic dissection or aneurysm. No pulmonary embolus, although the right lower lobe br anches are poorly seen. Strongly suspect thrombi within the right atrial appendage. The left atrial appendage is not adequate ly assessed. Bilateral pleural effusions with patchy areas of bilateral pneumonia. Electronically signed by: Leo Lock MD 06/30/2021 3:34 AM BANDER HAND Due to temporary technical issues with the PACS/Fluency reporting system, reports are being signed by the in house radiologists without review as a courtesy to insure prompt reporting. The interpreting radiologist is fully responsible for the content of the report.
[2021-06-30] MEDS ORDERED: dexAMETHasone 4 MG/ML VIAL ONE ×2 (12:15→20:52)
[2021-06-30] MEDS: APIXABAN 5 MG TABLET PO SCH ×2 (12:31→21:00)
--- NOTE | 2021-06-30 13:13 | P.HP ---
Certification for Inpatient Patient admitted to: Inpatient With expected LOS: >2 Midnights Practitioner: I am a practitioner with admitting privileges, knowledge of patient current condition, hospital course, and medical plan of care. Services: Services provided to patient in accordance with Admission requirements found in Title 42 Section 412.3 of the Code of Federal Regulations Patient History Date of Service: 06/30/21 Reason for admission: SHORT OF BREATH History of Present Illness: JERRICA HAS HISTORY OF CAD, COPD BEING FORMER SMOKER AND HAS HAD DYSPNEA FOR A FEW DAYS. SHE BEFORE THAT HAD WEAKNESS AND ANOREXIA.. SHE REPORTS TO ER. FOUND TO HAVE COVID INFECTION. I HAD DONE CT CHEST ANGIOGRAM THAT SHOWED NO PE A FEW DAYS AGO BUT CT ANGIO DONE IN ER READ BY DIFFERENT RADIOLOGIST SHOWS POSSIBLE THROMBUS IN ATRIAL APPENDAGE. ECHO IS PENDING. SHE IS ALREADY BETTER WITH IV STEROIDS. SHE IS ON HEPARIN DRIP THAT I CHANGED TO ELIQUIS PENDING ECHO. HER BNP IS HIGH BUT NO SIGNS OF CHF CLINICALLY. Allergies No Known Allergies Allergy (Verified 06/11/14 16:10) Home medications list reviewed: Yes Home Medications: Bupropion *Xl* [Wellbutrin XL*] 300 mg PO DAILY 06/11/14 Ipratropium/Albuterol Sulfate [Combivent Respimat Inhal [place]] 1 puff IH QID 06/11/14 Levothyroxine Sodium [Synthroid] 100 mcg PO DAILY 06/11/14 Trazodone [Desyrel*] 50 mg PO DAILY 06/11/14 Aspirin [Ecotrin 81 MG] 81 mg PO DAILY #30 tablet. 06/13/14 Atorvastatin Calcium [Lipitor*] 10 mg PO DAILY 01/23/21 Duloxetine HCl [Cymbalta] 60 mg PO DAILY 01/23/21 Fluticasone/Umeclidin/Vilanter [Trelegy Ellipta 100-62.5-25] 1 puff IH DAILY 01/23/21 Furosemide 20 mg PO DAILY #90 tablet 01/25/21 Spironolactone 25 mg PO DAILY #90 tablet 01/25/21 levoFLOXacin [Levaquin*] 500 mg PO DAILY #5 tab 01/25/21 - Past Medical/Surgical History Diabetic: No -: COPD -: HTN -: Endometriosis sx -: Cardiac stentx2 2014 -: Adhesiolysis - Family History Mother -: Cancer Notes: breast cancer Father -: Heart disease Sister -: Stroke - Social History Alcohol use: Yes CD- Drugs: No Caffeine use: Yes Review of Systems 10-point ROS is otherwise unremarkable General: Weakness Physical Examination - Vital Signs Blood Pressure: 115/79 Pulse: 82 Respirations: 20 Pulse Ox (%): 99 - Physical Exam General: Oriented x3, Mild distress HEENT: Atraumatic, PERRLA, Mucous membr. moist/pink, EOMI, Sclerae nonicteric Neck: Supple, 2+ carotid pulse no bruit, No LAD, Without JVD or thyroid abnormality Respiratory: Clear to auscultation bilaterally, Normal air movement Cardiovascular: Regular rate/rhythm, Normal S1 S2 Gastrointestinal: Normal bowel sounds, No tenderness Musculoskeletal: No tenderness Integumentary: No rashes Neurological: Normal gait, Normal speech, Normal strength at 5/5 x4 extr, Normal tone, Normal affect Lymphatics: No axilla or inguinal lymphadenopathy - Studies Laboratory Data (last 24 hrs) 06/30/21 02:30: WBC 6.40 D, Hgb 13.0, Hct 40.7, Plt Count 132 L 06/29/21 22:43: PT 12.9 H, INR 1.12 06/29/21 22:43: WBC 9.10, Hgb 13.5, Hct 41.7, Plt Count 121 L 06/29/21 21:50: Sodium 135 L, Potassium 3.7, BUN 20 H, Creatinine 0.94, Glucose 107 H, Magnesium 2.1, Total Bilirubin 0.9, AST 35, ALT 24, Alkaline Phosphatase 80 Microbiology Data (last 24 hrs): 06/29/21 20:43 Blood - Blood Anaerobic Blood Culture - Final Assessment and Plan - Problems (Diagnosis) (1) COVID Current Visit: Yes Status: Acute Plan: SEROIDS IV ZITHROMAX NEBULIZER. STABLE AND VACCINATED. (2) Atrial thrombus Current Visit: Yes Status: Acute Plan: NEEDS TO BE CONFIRMED (3) Fatigue Current Visit: Yes Status: Chronic (4) COPD (chronic obstructive pulmonary disease) Current Visit: Yes Status: Chronic Plan: CONT NEBS. NO SIGNS OF CHF ON EXAMINATION. - Advance Directives Does patient have a Living Will: No Does patient have a Durable POA for Healthcare: No
--- NOTE | 2021-06-30 13:23 | P.CNS ---
Date of Consult: 06/30/21 Reason for Consult: Possible coronavirus pneumonia Chief Complaint: SHORT OF BREATH History of Present Illness: Patient is 70 years of age admitted with shortness of breath and weakness anorexia was found to have tested positive for COVID he is currently doing well possible thrombus in the atrial appendage echocardiogram is pending he has no further complaints hard of hearing Allergies No Known Allergies Allergy (Verified 06/11/14 16:10) Home Medications: Bupropion *Xl* [Wellbutrin XL*] 300 mg PO DAILY 06/11/14 Ipratropium/Albuterol Sulfate [Combivent Respimat Inhal [place]] 1 puff IH QID 06/11/14 Levothyroxine Sodium [Synthroid] 100 mcg PO DAILY 06/11/14 Trazodone [Desyrel*] 50 mg PO DAILY 06/11/14 Aspirin [Ecotrin 81 MG] 81 mg PO DAILY #30 tablet. 06/13/14 Atorvastatin Calcium [Lipitor*] 10 mg PO DAILY 01/23/21 Duloxetine HCl [Cymbalta] 60 mg PO DAILY 01/23/21 Fluticasone/Umeclidin/Vilanter [Trelegy Ellipta 100-62.5-25] 1 puff IH DAILY 01/23/21 Furosemide 20 mg PO DAILY #90 tablet 01/25/21 Spironolactone 25 mg PO DAILY #90 tablet 01/25/21 levoFLOXacin [Levaquin*] 500 mg PO DAILY #5 tab 01/25/21 - Past Medical/Surgical History Diabetic: No -: COPD -: HTN -: Endometriosis sx -: Cardiac stentx2 2013 -: Adhesiolysis - Family History Mother Medical History: Cancer Notes: breast cancer Father Medical History: Heart disease Sister Medical History: Stroke - Social History Alcohol use: Yes CD- Drugs: No Caffeine use: Yes Review of Systems 10-point ROS is otherwise unremarkable General: Weakness Respiratory: Shortness of Breath Physical Examination Temp Pulse Resp BP Pulse Ox 82 20 115/79 99 06/30/21 13:14 06/30/21 13:14 06/30/21 13:14 06/30/21 13:14 General: Alert, In no apparent distress, Oriented x3 Neck: Supple Respiratory: Clear to auscultation bilaterally Cardiovascular: No edema, Regular rate/rhythm Laboratory Data (last 24 hrs) 06/30/21 02:30: WBC 6.40 D, Hgb 13.0, Hct 40.7, Plt Count 132 L 06/29/21 22:43: PT 12.9 H, INR 1.12 06/29/21 22:43: WBC 9.10, Hgb 13.5, Hct 41.7, Plt Count 121 L 06/29/21 21:50: Sodium 135 L, Potassium 3.7, BUN 20 H, Creatinine 0.94, Glucose 107 H, Magnesium 2.1, Total Bilirubin 0.9, AST 35, ALT 24, Alkaline Phosphatase 80 - Problems (1) 2019 novel coronavirus-infected pneumonia (NCIP) Current Visit: Yes Status: Acute Plan: Patient is 70 years of age admitted with possible coronavirus pneumonia however there is minimal changes on CT scan chest x-ray patient is a chronic right lower lobe loculated pleural effusion saturation on room air is normal oxygenation satisfactory CRP patient is anticoagulated reduced dose of steroids DC no evidence of sepsis possible discharge tomorrow low-dose steroids if hypoxic
[2021-06-30] MEDS ORDERED: ALBUTEROL 2.5 MG/3 ML NEB SOL ONE ×2 (15:25→19:52)
[2021-06-30] MEDS ORDERED: IPRATROPIUM BROM 0.5MG/2.5ML ONE ×2 (15:25→19:52)
[2021-06-30] MEDS: IPRATROPIUM BROM 0.5MG/2.5ML NEB SCH ×2 (15:27→19:50)
[2021-06-30] MEDS: ALBUTEROL 2.5 MG/3 ML NEB SOL NEB SCH ×2 (15:27→19:50)
--- NOTE | 2021-06-30 16:39 | CON ---
Date of Consultation: 06/30/2021 Reason For Consultation: Elevated troponin. History Of Present Illness: This is a 70-year-old female with history of coronary artery disease. S he has a stent in 2013 to her RCA and mild coronary artery disease elsewhere per cath report, present ed with shortness of breath and generalized weakness, found to be positive for COVID. Denies having any chest pain. She is slightly short of breath. No other complaints. Past Medical History: Significant for COPD, hypertension, coronary artery disease. Medications: Refer to reconciliation sheet for detailed list. Allergies: NO KNOWN DRUG ALLERGIES. Family History: No premature coronary artery disease or cancer. Social History: Does not smoke or drink. Does not use any drugs. Review of Systems: All systems reviewed and they were negative except for what mentioned in HPI. Physical Examination: Vital Signs: Temperature is 98.4, pulse 82, breathing at 18, blood pressure is 115/79, saturating 99 %. General: Pleasant elderly female, no apparent distress. Head and Neck: Pupils are equal, reactive to light. Intact eye movements. No JVD. No cervical lym phadenopathy. Neck is supple. Thyroid is not enlarged. Lungs: Rhonchi bilaterally. No accessory muscle use or muscle retraction. Heart: Regular rate and rhythm. No extra sounds. Abdomen: Soft, nontender. Bowel sounds positive. No organomegaly. No masses or hernia. No rigidi ty or rebound. Extremities: No clubbing or cyanosis. Intact pulses. Skin: No rash. Neuro: Alert, awake, oriented x3. No acute focal deficits appreciated. Investigations: Hemoglobin is 13. Creatinine is 0.94. Troponin 0.33 and then 0.31. Echo; severely depressed LV function, ejection fraction of 25% to 30%. Had a normal ejection fraction back in [facility] 2020. Assessment And Recommendations: 1.Borderline elevated troponin with significant systolic dysfunction on echo. This patient will nee d coronary angiogram, however, is active COVID. I will recommend to trend the troponin and start emanuel deline-directed medical therapy for congestive heart failure including a low-dose FLORENTINO inhibitor and b eta-[place], start her on aspirin and Lovenox, and discontinue the Eliquis. We will plan for coronar y angiogram once her condition from the COVID standpoint is stable and unless her troponin significan tly increases, then we will do the angiogram on the more emergent basis. 2.Elevated troponin, likely due to COVID itself; however, I reviewed her echo and there is significa nt drop in her ejection fraction. She does not have any chest pain. Likely her troponin leak is due to COVID itself. Plan as above. The patient will need coronary angiogram; however, once her COVID status is more controlled and stabilized. SR/MODL Voice ID: [id number] Report ID: [id number]
[2021-06-30] MEDS ORDERED: INFLUENZA VACCINE (for 6+ mo) 0.5 ML DOSE IMVAC ONE ×2 (20:00→20:53)
[2021-06-30] MEDS ORDERED: AZITHROMYCIN IV 500 MG in NA CHLORIDE 0.9% 250 ML IVPB SCH (21:00)
[2021-06-30] MEDS: dexAMETHasone 4 MG/ML VIAL IV SCH (21:00)
[2021-07-01] MEDS: ALBUTEROL 2.5 MG/3 ML NEB SOL NEB SCH ×4 (01:15→19:30)
[2021-07-01] MEDS: IPRATROPIUM BROM 0.5MG/2.5ML NEB SCH ×4 (01:15→19:30)
[2021-07-01] MEDS ORDERED: IPRATROPIUM BROM 0.5MG/2.5ML ONE ×3 (01:16→19:39)
[2021-07-01] MEDS ORDERED: ALBUTEROL 2.5 MG/3 ML NEB SOL ONE ×3 (01:16→19:38)
[2021-07-01] MEDS ORDERED: ACETAMINOPHEN 325 MG TABLET PO PRN (04:55)
[2021-07-01] MEDS ORDERED: ACETAMINOPHEN 325 MG TABLET ONE (05:02)
[2021-07-01 05:24] LABS: Potassium 3.8 mmol/L (3.5-5.1); Troponin I 0.2 ng/mL (0.0-0.045)
--- NOTE | 2021-07-01 08:01 | ECHO ---
HEIGHT: 5 ft 2 in WEIGHT: 149 lb 14.629 oz DATE OF STUDY: 06/30/[address]: Bakari Velasco MD 2-DIMENSIONAL: YES M.MODE: YES DOPPLER: YES COLOR FLOW: YES TDS: NO PORTABLE: YES DEFINITY: NO BUBBLE STUDY: NO DIAGNOSIS: EDEMA, DYSPNEA CARDIAC HISTORY: CATHERIZATION: SURGERY: PROSTHETIC VALVE: PACEMAKER: MEASUREMENTS (cm) DIASTOLIC (NORMALS) SYSTOLIC (NORMALS) IVSd 1.1 (0.6-1.2) LA Diam (1.9-4.0) LVEF 25-30% LVIDd 4.4 (3.5-5.7) LVIDs 3.9 (2.0-3.5) %FS 10% LVPWd 1.2 (0.6-1.2) Ao Diam 2.9 (2.0-3.7) 2 DIMENSIONAL ASSESSMENT: RIGHT ATRIUM: NORMAL LEFT ATRIUM: NORMAL RIGHT VENTRICLE: NORMAL LEFT VENTRICLE: DEPRESSED TRICUSPID VALVE: MITRAL VALVE: PULMONIC VALVE: AORTIC VALVE: PERICARDIAL EFFUSION: NONE AORTIC ROOT: NORMAL LEFT VENTRICULAR WALL MOTION: SEVERE GLOBAL HYPOKINESIS. DOPPLER/COLOR FLOW: SEE BELOW COMMENTS: SEVERELY DEPRESSED LEFT VENTRICULAR EJECTION FRACTION 25-30%. SEVERE GLOBAL HYPOKINESIS. MODERATE TRICUSPID REGURGITATION. MILD PULMONARY, MITRAL AND AORTIC REGURGITATION. TECHNOLOGIST: Yenny MENDES
[2021-07-01] MEDS: dexAMETHasone 4 MG/ML VIAL IV SCH (09:00)
[2021-07-01] MEDS ORDERED: dexAMETHasone 4 MG/ML VIAL ONE (11:28)
[2021-07-01] MEDS: ENOXAPARIN 40 MG/0.4 ML SQ SCH (17:00)
--- NOTE | 2021-07-01 17:19 | P.PN ---
Subjective Date of Service: 07/01/21 Chief Complaint: SHORT OF BREATH Subjective: Improving SHE IS CLINICALLY STABLE BUT COMPLAINS OF DYSPNEA. SHE HAS NO PNEUMONIA BUT HAS DYSPNEA AT REST. Review of Systems 10-point ROS is otherwise unremarkable General: Weakness Physical Examination - Vital Signs Blood Pressure: 160/92 Pulse: 106 Respirations: 19 Pulse Ox (%): 96 - Physical Exam General: Oriented x3, Mild distress HEENT: Atraumatic, PERRLA, EOMI Neck: Supple, JVD not distended Respiratory: Clear to auscultation bilaterally, Normal air movement Cardiovascular: Regular rate/rhythm, Normal S1 S2 Gastrointestinal: Normal bowel sounds, No tenderness Musculoskeletal: No tenderness Integumentary: No rashes Neurological: Normal speech, Normal tone, Normal affect Lymphatics: No axilla or inguinal lymphadenopathy - Studies Microbiology Data (last 24 hrs): 06/29/21 20:43 Blood - Blood Anaerobic Blood Culture - Final Medications List Reviewed: Yes Assessment And Plan - Current Problems (Diagnosis) (1) COVID Current Visit: Yes Status: Acute Plan: SEROIDS IV ZITHROMAX NEBULIZER. STABLE AND VACCINATED. DC IV STEROIDS. CHANGE TO PO. (2) Fatigue Current Visit: Yes Status: Chronic (3) COPD (chronic obstructive pulmonary disease) Current Visit: Yes Status: Chronic Plan: CONT NEBS. NO SIGNS OF CHF ON EXAMINATION. (4) Congestive cardiomyopathy Current Visit: Yes Status: Acute Plan: EF OF 25% THIS IS MAIN REASON WHY SHE IS FATIGUED AND LASIX BID SPIRONOLACTONE 50 MG DAILY. ONCE TOLERATES WILL ADD ENTRESTO IF NEED. NEEDS CARDIAC EVAL ON OUTPATIENT BASIS.
[2021-07-02] MEDS ORDERED: ALBUTEROL 2.5 MG/3 ML NEB SOL ONE ×4 (02:00→19:29)
[2021-07-02] MEDS ORDERED: IPRATROPIUM BROM 0.5MG/2.5ML ONE ×4 (02:00→19:29)
[2021-07-02] MEDS: ALBUTEROL 2.5 MG/3 ML NEB SOL NEB SCH ×4 (02:05→19:30)
[2021-07-02] MEDS: IPRATROPIUM BROM 0.5MG/2.5ML NEB SCH ×4 (02:05→19:30)
[2021-07-02] MEDS ORDERED: FUROSEMIDE 20 MG/ 2ML VIAL ONE ×2 (09:00→20:33)
[2021-07-02] MEDS: predniSONE 10 MG TAB PO SCH (09:00)
[2021-07-02] MEDS: SPIRONOLACTONE 25 MG TABLET PO SCH (09:00)
[2021-07-02] MEDS: FUROSEMIDE 20 MG/ 2ML VIAL IV SCH ×2 (09:00→17:00)
[2021-07-02 09:01] LABS: Absolute Lymphocytes (CBC) 0.1 K/uL (0.7-4.9); Hematocrit 43.5 % (36.0-45.0); Lymphocytes % 0.8 % (15.3-44.8); MPV 9.1 fL (7.6-11.3); RBC Red Blood Cell Count 5.36 M/uL (3.86-4.86)
[2021-07-02] MEDS ORDERED: predniSONE 10 MG TAB ONE (09:04)
[2021-07-02] MEDS ORDERED: SPIRONOLACTONE 25 MG TABLET ONE (09:04)
[2021-07-02 09:09] LABS: Magnesium 2.6 mg/dL (1.8-2.4); Potassium 3.8 mmol/L (3.5-5.1)
[2021-07-02 09:49] LABS: Anisocytosis 1+; Blood Morphology Comment NOTED (NOT SEEN); Platelet Estimate DECR; Polychromasia 1+
--- NOTE | 2021-07-02 14:02 | P.PN ---
Subjective Date of Service: 07/02/21 Chief Complaint: SHORT OF BREATH Subjective: No new changes SHE IS CLINICALLY STABLE BUT COMPLAINS OF DYSPNEA. SHE HAS NO PNEUMONIA BUT HAS DYSPNEA AT REST. SHE STILL HAS DYSPNEA AT REST. SHE IS WEAK, FATIGUED. Review of Systems 10-point ROS is otherwise unremarkable General: Weakness, Malaise Respiratory: Shortness of Breath Physical Examination - Vital Signs Temperature: 98.4 F Blood Pressure: 132/95 Pulse: 103 Respirations: 15 Pulse Ox (%): 97 - Physical Exam General: Oriented x3, Mild distress, Moderate distress HEENT: Atraumatic, PERRLA, EOMI Neck: Supple, JVD not distended Respiratory: Diminished Cardiovascular: Regular rate/rhythm, Normal S1 S2 Gastrointestinal: Normal bowel sounds, No tenderness Musculoskeletal: No tenderness Integumentary: No rashes Neurological: Normal speech, Normal tone, Normal affect Lymphatics: No axilla or inguinal lymphadenopathy - Studies Medications List Reviewed: Yes Assessment And Plan - Current Problems (Diagnosis) (1) COVID Current Visit: Yes Status: Acute Plan: SEROIDS IV ZITHROMAX NEBULIZER. STABLE AND VACCINATED. DC IV STEROIDS. CHANGE TO PO. (2) Fatigue Current Visit: Yes Status: Chronic (3) COPD (chronic obstructive pulmonary disease) Current Visit: Yes Status: Chronic Plan: CONT NEBS. NO SIGNS OF CHF ON EXAMINATION. (4) Congestive cardiomyopathy Current Visit: Yes Status: Acute Plan: EF OF 25% THIS IS MAIN REASON WHY SHE IS FATIGUED AND LASIX BID SPIRONOLACTONE 50 MG DAILY. ONCE TOLERATES WILL ADD ENTRESTO IF NEED. NEEDS CARDIAC EVAL ON OUTPATIENT BASIS. SO FAR THE MEDS HAVE NOT HELPED HER. PROGNOSIS IS POOR.
[2021-07-02] MEDS: AZITHROMYCIN IV 500 MG in NA CHLORIDE 0.9% 250 ML IVPB SCH (15:55)
--- NOTE | 2021-07-02 16:12 | PN ---
The patient had been admitted by Dr. Velasco, has been followed by Dr. Rivera. She is here for [facility]. She has improved. Echocardiogram showed perfectly normal ejection fraction. No right atrial thromb us. No pericardial effusion. The patient is looking good. She is breathing fairly well. No need t o change any of her medical therapy at this point. I discussed the case with Dr. Velasco. She can go home whenever it is okay with him and we will see her in the office in the next couple of weeks. JAZZMINE/LUL Voice ID: [id number] Report ID: [id number]
[2021-07-02] MEDS: ENOXAPARIN 40 MG/0.4 ML SQ SCH (17:00)
[2021-07-02] MEDS ORDERED: ENOXAPARIN 40 MG/0.4 ML SQ ONE (17:21)
[2021-07-03] MEDS ORDERED: IPRATROPIUM BROM 0.5MG/2.5ML ONE ×2 (00:22→04:51)
[2021-07-03] MEDS ORDERED: ALBUTEROL 2.5 MG/3 ML NEB SOL ONE ×2 (00:22→04:51)
[2021-07-03] MEDS: IPRATROPIUM BROM 0.5MG/2.5ML NEB SCH ×6 (00:25→20:00)
[2021-07-03] MEDS: ALBUTEROL 2.5 MG/3 ML NEB SOL NEB SCH ×6 (00:25→20:00)
[2021-07-03] MEDS: SPIRONOLACTONE 25 MG TABLET PO SCH (09:00)
[2021-07-03] MEDS: predniSONE 10 MG TAB PO SCH (09:00)
[2021-07-03] MEDS: AZITHROMYCIN IV 500 MG in NA CHLORIDE 0.9% 250 ML IVPB SCH (09:15)
[2021-07-03] MEDS ORDERED: FUROSEMIDE 40 MG/4 ML VIAL ONE (09:29)
[2021-07-03] MEDS ORDERED: predniSONE 10 MG TAB ONE (09:30)
[2021-07-03] MEDS: FUROSEMIDE 20 MG/ 2ML VIAL IV SCH (09:30)
[2021-07-03] MEDS ORDERED: HALOPERIDOL LACT 5 MG/ML INJ ONE (11:13)
[2021-07-03] MEDS: HALOPERIDOL LACT 5 MG/ML INJ IV PRN ×2 (11:16→17:46)
--- NOTE | 2021-07-03 11:27 | P.PN ---
Subjective Date of Service: 07/03/21 Chief Complaint: NOT BREATHING WELL, CRYING Subjective: Worsening SHE COMPLAINTS OF NO ONE BEING WITH HER. SHE IS WAITING FOR . SHE IS ALSO SHORT OF BREATH. I CALLED DR. PRESLEY TO SEE HER AGAIN. I TALKED TO MADE HER DNR SHE HAS 20% EF ON ECHO AND SHE IS NOT BETTER ON DIURETICS. I ALSO RAISE LASIX DOSE, ORDERED CXR STAT. EXPLAINED TO IN DETAIL. Review of Systems General: Weakness Respiratory: Shortness of Breath, As per HPI Cardiovascular: Paroxysmal Noc. Dyspnea, As per HPI Physical Examination - Vital Signs Temperature: 98.4 F Blood Pressure: 146/102 Pulse: 105 Respirations: 24 Pulse Ox (%): 95 - Physical Exam General: Oriented x2, Moderate distress HEENT: Atraumatic, PERRLA, EOMI Neck: Supple, JVD not distended Respiratory: Clear to auscultation bilaterally, Normal air movement Cardiovascular: Regular rate/rhythm, Normal S1 S2 Gastrointestinal: Normal bowel sounds, No tenderness Musculoskeletal: No tenderness Integumentary: No rashes Neurological: Normal speech, Normal tone, Normal affect Lymphatics: No axilla or inguinal lymphadenopathy - Studies Medications List Reviewed: Yes Assessment And Plan - Current Problems (Diagnosis) (1) COVID Current Visit: Yes Status: Acute Plan: SEROIDS IV ZITHROMAX NEBULIZER. STABLE AND VACCINATED. DC IV STEROIDS. CHANGE TO PO. (2) Fatigue Current Visit: Yes Status: Chronic (3) COPD (chronic obstructive pulmonary disease) Current Visit: Yes Status: Chronic Plan: CONT NEBS. NO SIGNS OF CHF ON EXAMINATION. (4) Congestive cardiomyopathy Current Visit: Yes Status: Acute Plan: EF OF 25% THIS IS MAIN REASON WHY SHE IS FATIGUED AND LASIX BID SPIRONOLACTONE 50 MG DAILY. ONCE TOLERATES WILL ADD ENTRESTO IF NEED. NEEDS CARDIAC EVAL ON OUTPATIENT BASIS. SO FAR THE MEDS HAVE NOT HELPED HER. PROGNOSIS IS POOR. PER HPI SHE IS NOT DOING GOOD EF IS LOW. DNR ADVISED , ACCEPTED. CXR STAT DR PRESLEY CALLED TO SEE HER.
--- NOTE | 2021-07-03 11:54 | P.PN ---
Subjective Date of Service: 07/03/21 Chief Complaint: Respiratory failure Patient was started on BiPAP she is currently stable sats 100% alert by the bedside Review of Systems is unable to be obtained Physical Examination - Vital Signs Temperature: 98.4 F Blood Pressure: 146/102 Pulse: 105 Respirations: 24 Pulse Ox (%): 95 - Physical Exam General: Alert, Cooperative Respiratory: Clear to auscultation bilaterally, Diminished - Studies Medications List Reviewed: Yes Assessment & Plan - Problems (Diagnosis) (1) 2019 novel coronavirus-infected pneumonia (NCIP) Current Visit: Yes Status: Acute Plan: Possible worsening respiratory failure she has markedly diminished ejection frac tion we will effusions right greater than the left dynamically stable wean off the BiPAP no evidence of active sepsis can decrease the dose of steroids Mackenzie nutrition prognosis poor ejection fraction is markedly diminished currently on scheduled nebulizer
--- NOTE | 2021-07-03 12:01 | RAD REPORT ---
EXAM DESCRIPTION: Unique Single View07/03/2021 11:35 am CLINICAL HISTORY: Shortness breath COMPARISON: June 29, 2021 FINDINGS: Small to moderate right and small left pleural effusions. Right basilar opacities could represent pneumonia or atelectasis Heart is enlarged
[2021-07-03] MEDS: METHYLPREDNISOLONE 40 MG INJ IV SCH ×2 (13:03→17:11)
[2021-07-03] MEDS: FUROSEMIDE 40 MG/4 ML VIAL IV SCH (16:43)
[2021-07-03] MEDS: ENOXAPARIN 40 MG/0.4 ML SQ SCH (16:43)
[2021-07-03] MEDS ORDERED: MIRTAZAPINE 15 MG TAB PO ONE (21:00)
[2021-07-03] MEDS ORDERED: MIRTAZAPINE 7.5 MG PO SCH (21:00)
[2021-07-03] MEDS: MEGESTROL 40 MG TAB PO SCH (21:20)
[2021-07-03] MEDS ORDERED: clonazePAM 0.5 MG TAB PO PRN ×2 (21:40→21:45)
[2021-07-04] MEDS: METHYLPREDNISOLONE 40 MG INJ IV SCH ×3 (01:04→12:41)
[2021-07-04] MEDS: IPRATROPIUM BROM 0.5MG/2.5ML NEB SCH ×2 (02:08→08:00)
[2021-07-04] MEDS: ALBUTEROL 2.5 MG/3 ML NEB SOL NEB SCH ×2 (02:08→08:00)
[2021-07-04 06:24] LABS: Absolute Lymphocytes (CBC) 0.1 K/uL (0.7-4.9); Hematocrit 45.1 % (36.0-45.0); Lymphocytes % 1.1 % (15.3-44.8); MPV 9.5 fL (7.6-11.3); RBC Red Blood Cell Count 5.54 M/uL (3.86-4.86)
[2021-07-04 06:57] LABS: Blood Morphology Comment NOTED (NOT SEEN); Platelet Estimate DECR; Platelets, Giant PRESENT
[2021-07-04 06:58] LABS: Anisocytosis 1+
[2021-07-04 06:59] LABS: Potassium 5.1 mmol/L (3.5-5.1)
[2021-07-04] MEDS: MEGESTROL 40 MG TAB PO SCH ×2 (09:00→13:56)
[2021-07-04] MEDS ORDERED: LEVOTHYROXINE SOD 0.125 MG TAB PO SCH (09:00)
[2021-07-04] MEDS ORDERED: ATORVASTATIN 10 MG TAB PO SCH (09:00)
[2021-07-04] MEDS: SPIRONOLACTONE 25 MG TABLET PO SCH (09:00)
[2021-07-04] MEDS ORDERED: Fluticasone/Umeclidin/Vilanter [Trelegy Ellipta 100-62.5-25] Blst.W.Dev IH SCH (09:00)
[2021-07-04] MEDS: FUROSEMIDE 40 MG/4 ML VIAL IV SCH (09:26)
[2021-07-04] MEDS: AZITHROMYCIN IV 500 MG in NA CHLORIDE 0.9% 250 ML IVPB SCH (09:27)
[2021-07-04 12:00] VITALS: BP 137/88; TEMP 96.9; O2SAT 98
--- NOTE | 2021-07-04 20:43 | P.DS ---
Admission Date: 06/30/21 Discharge Date: 07/04/21 Disposition: HOSPICE-MEDICAL FACILITY Reason for Admission: Respiratory failure - Problems (1) COVID Status: Acute (2) Fatigue Status: Chronic (3) COPD (chronic obstructive pulmonary disease) Status: Chronic (4) Congestive cardiomyopathy Status: Acute Brief History of Present Illness: JERRICA HAS HISTORY OF CAD, COPD BEING FORMER SMOKER AND HAS HAD DYSPNEA FOR A FEW DAYS. SHE BEFORE THAT HAD WEAKNESS AND ANOREXIA.. SHE REPORTS TO ER. FOUND TO HAVE COVID INFECTION. I HAD DONE CT CHEST ANGIOGRAM THAT SHOWED NO PE A FEW DAYS AGO BUT CT ANGIO DONE IN ER READ BY DIFFERENT RADIOLOGIST SHOWS POSSIBLE THROMBUS IN ATRIAL APPENDAGE. ECHO IS PENDING. SHE IS ALREADY BETTER WITH IV STEROIDS. SHE IS ON HEPARIN DRIP THAT I CHANGED TO ELIQUIS PENDING ECHO. HER BNP IS HIGH BUT NO SIGNS OF CHF CLINICALLY. Hospital Course: JERRICA COMES IN WITH DYSPNEA THAT IS NOT IMPROVING ON OUTPATIENT BASIS. SHE HAS HISTORY OF SMOKING WITH CAD WITH COPD. SHE CAME TO OFFICE A FEW TIME SAND I DIAGNOSED HER TO HAVE COPD AND CHF BOTH BEING AN ISSUE. SHE FAILED TO IMPROVE ON REGIMEN FOR CHF AND COPD BOTH. SHE REPORTS TO ER. SHE IN ADDITION IS FOUND TO HAVE COVID INFECTION. SHE IS GIVEN STEROIDS IV, NEBS, ZITHROMAX IV AND ALSO IV LASIX WITH SPIRONOLACTONE IN INCREASING DOSE. HER EF ON ECHO IS DOWN TO 20%. SHE CONTINUES TO HAVE RAPID BREATHING WITH EXHAUSTED FEELING. YESTERDAY I TALKED TO AND WE MADE HER DNR. TODAY HE AGREES WITH HOSPICE ALL EFFORTS FROM ALL 3 DOCTORS HAVE FAILED. WE WILL DC ALL MEDS EXCEPT FOR COMFORT CARE AND SHE IS ADMITTED TO [facility]. SHE IS NOT IN ANY PHYSICAL SHAPE TO UNDERGO INVASIVE EVALUATION AND TREATEMENT LIKE CARDIAC CATHETERIZATION. UNDERSTANDS AND AGREES. Vital Signs/Physical Exam: Temp Pulse Resp BP Pulse Ox 96.9 F 106 H 36 H 137/88 98 07/04/21 11:58 07/04/21 11:58 07/04/21 11:58 07/04/21 11:58 07/04/21 11:58 General: Oriented x1, Severe distress Respiratory: Diminished, Other (RAPID BREATHING.) Laboratory Data at Discharge: WBC 12.00 K/uL (4.3-10.9) H 07/04/21 06:14 Hgb 14.2 g/dL (12.0-15.0) 07/04/21 06:14 Hct 45.1 % (36.0-45.0) H 07/04/21 06:14 Plt Count 138 K/uL (152-406) L 07/04/21 06:14 PT 12.9 SECONDS (9.5-12.5) H 06/29/21 22:43 INR 1.12 06/29/21 22:43 APTT 47.4 SECONDS (24.3-36.9) H 06/30/21 15:00 Sodium 138 mmol/L (136-145) 07/04/21 06:14 Potassium 5.1 mmol/L (3.5-5.1) 07/04/21 06:14 BUN 41 mg/dL (7-18) H 07/04/21 06:14 Creatinine 1.42 mg/dL (0.55-1.3) H 07/04/21 06:14 Glucose 98 mg/dL (74-106) 07/04/21 06:14 Magnesium 2.6 mg/dL (1.8-2.4) H D 07/02/21 08:45 Total Bilirubin 0.9 mg/dL (0.2-1.0) 06/29/21 21:50 AST 35 U/L (15-37) 06/29/21 21:50 ALT 24 U/L (12-78) 06/29/21 21:50 Alkaline Phosphatase 80 U/L (45-117) 06/29/21 21:50 Troponin I 0.22 ng/mL (0.0-0.045) H 07/02/21 04:46 Triglycerides 152 mg/dL (<150) H 07/01/21 04:30 Cholesterol 128 mg/dL (<200) 07/01/21 04:30 HDL Cholesterol 15 mg/dL (40-60) L 07/01/21 04:30 Cholesterol/HDL Ratio 8.53 07/01/21 04:30 Home Medications: Ipratropium/Albuterol Sulfate [Combivent Respimat Inhal [place]] 1 puff IH Q4H PRN 06/11/14 Levothyroxine Sodium [Synthroid] 125 mcg PO DAILY 06/11/14 Atorvastatin Calcium [Lipitor*] 10 mg PO DAILY 08/01/21 Fluticasone/Umeclidin/Vilanter [Trelegy Ellipta 100-62.5-25] 1 puff IH DAILY 01/23/21 Furosemide 20 mg PO DAILY #90 tablet 01/25/21 Spironolactone 25 mg PO DAILY #90 tablet 01/25/21 Megestrol [Megace*] 1 tab PO TID 07/03/21 Mirtazapine 1 tab PO BEDTIME 07/03/21 Potassium Chloride 1 tab PO DAILY 07/03/21 Followup: Bakari Velasco MD [Primary Care Provider] -
== END 2021-07-04 15:05 | disposition hospice, inpatient (51) | DRG 177 ==
LOC: ER 17:50 → ERHOLD 06-30 05:02 → 4TH 07-03 11:48
PROVIDERS: ADMIT Internal Medicine; ATTEND Internal Medicine
DX: U07.1 COVID-19 (principal); J96.90 Respiratory failure, unspecified, unspecified whether with hypoxia or hypercapnia; I50.23 Acute on chronic systolic (congestive) heart failure; I42.0 Dilated cardiomyopathy; I25.10 Atherosclerotic heart disease of native coronary artery without angina pectoris; J44.9 Chronic obstructive pulmonary disease, unspecified; Z87.891 Personal history of nicotine dependence; Z95.5 Presence of coronary angioplasty implant and graft; Z66 Do not resuscitate; I11.0 Hypertensive heart disease with heart failure
CPT/HCPCS: 0240U; 36415; 71045; 71275; 80048; 80061; 80076; 81003; 82805; 83605; 83735; 83880; 84145; 84484; 85025; 85379; 85610; 85730; 86140; 87040; 93005; 93306; 94640; 94660; 94760; 99285; J0456; J1100; J1630; J1644; J1650; J1940; J2920; J7030; J7050; J7512; J8540; Q2035; Q9967

== ENCOUNTER 2021-07-04 15:06 | Inpatient (IN) | payer OTHER ==
--- OUTSIDE RECORDS SUMMARY | 2021-07-04 15:09 | XMS REPORT | Continuity of Care Document ---
:1950 Author Organization [facility] t Address [address] [place] [address] Care Team Providers Name Role Phone Annalisa Orellana MD Attending Clinician Annalisa ORELLANA Attending Clinician Unavailable Payers Payer Name Policy Type Policy Number Effective Date Expiration Date Josue drew MEDICARE PART A [id number] 2015 \T\ B 00:00:00 [employer] INDEMNITY [id number] 2015 00:00:00 Problems This patient has no known problems. Allergies, Adverse Reactions, Alerts Allergy Allergy Status Severity Reaction(s) Onset Inactive Treating Comm ents Source Name Type Date Date Clinician NO KNOWN Drug Active Univers ALLERGIE Class ity of S Formerly [facility] Social History Social Habit Start Date Stop Date Quantity Comments Source Sex Assigned At [facility] Exposure to Not sure [facility] SARS-CoV-2 (event) Medica l Branch Alcohol intake 2020-01-09 2020-01-09 [facility] 00:00:00 00:00:00 [facility] Smoking Status Start Date Stop Date Source Former smoker 2020-01-09 00:00:00 2020-01-09 00:00:00 [facility] Medications Ordered Filled Start Stop Current Ordering Indication Dosage Frequency Signature Comments Components Source Medication Medication Date Date Medication? Clinician (SIG) Name Name cefUROXime Yes Univers 250 mg 7-06 ity of tablet 00:00: [address] cefUROXime Yes Univers 250 mg 7-06 ity of tablet 00:00: [address] TRELEGY Yes INHALE 1 Univer s [...] 10 mg 6-16 ity of tablet 00:00: [facility] levothyroxi 2020-0 Yes Univer s ne 100 mcg 6-16 ity of tablet 00:00: [facility] atorvastati 2020-0 Yes Univer s n 10 mg 6-16 ity of tablet 00:00: [facility] levothyroxi 2020-0 Yes Univer s ne 100 mcg 6-16 ity of tablet 00:00: [facility] methylpheni 2020-0 Yes 10mg Take 10 mg Univers date HCl 10 6-02 by mouth 2 it y of mg tablet 00:00: (two) [place] [facility] daily. Branch methylpheni 2020-0 Yes 10mg Take 10 mg Univers date HCl 10 6-02 by mouth 2 it y of mg tablet 00:00: (two) [place] [facility] daily. Branch DULoxetine 2020-0 Yes 60mg Take 60 mg U nivers 60 mg 6-01 by mouth ity of capsule 00:00: daily. [facility] DULoxetine 2020-0 Yes 60mg Take 60 mg U nivers 60 mg 6-01 by mouth ity of capsule 00:00: daily. [facility] spironolact 2020-0 Yes 25mg Take 25 mg Univers one 25 mg 5-30 by mouth ity of tablet 00:00: daily. [facility] spironolact 2020-0 Yes 25mg Take [...] 21:25:00 141 mm[Hg] Univer sity of pressure [facility] Diastolic blood 2020-01-09 21:25:00 68 mm[Hg] Unive rsity of pressure [facility] Heart rate 2020-01-09 21:25:00 70 /min Universi ty of [facility] Body temperature 2020-01-09 20:43:00 36.72 Stephanie Univ ersity of [facility] Respiratory rate 2020-01-09 20:43:00 18 /min Univ ersity of [facility] Body height 2020-01-09 20:43:00 157.5 cm Universi ty of [facility] Body weight 2020-01-09 20:43:00 91.627 kg Universi ty of [facility] BMI 2020-01-09 20:43:00 36.95 kg/m2 Universi ty of [facility] Systolic blood 2020-01-09 21:25:00 141 mm[Hg] Univer sity of pressure [facility] Diastolic blood 2020-01-09 21:25:00 68 mm[Hg] Unive rsity of pressure [facility] Heart rate 2020-01-09 21:25:00 70 /min Universi ty of [facility] Body temperature 2020-01-09 20:43:00 36.72 Stephanie Univ ersity of [facility] Respiratory rate 2020-01-09 20:43:00 18 /min Univ ersity of [facility] Body height 2020-01-09 20:43:00 157.5 cm Universi ty of [facility] Body weight 2020-01-09 20:43:00 91.627 kg [facility]i ty [facility] BMI 2020-01-09 20:43:00 36.95 kg/m2 Universi ty of [facility] Procedures This patient has no known procedures. Encounters Start End Encounter Admission Attending Care Care Encounter Source Date/Time Date/Time Type Type Clinicians Facility Department ID 2020-09-11 2020-09-11 Outpatient [facility] [id number] Univers 09:30:00 09:30:00 ity [facility] 2020-08-21 2020-08-21 Outpatient [facility] [id number] Univers 10:40:00 10:40:00 [facility]Formerly [facility] 2020-01-09 2020-01-09 [facility] [id number] 15:19:18 16:43:19 Visit Nicolette Guy [id number] [place] [id number] Professio [phone] [address] 2020-01-09 2020-01-09 [facility] [id number] Univers 15:19:18 16:43:19 Visit Nicolette Guy [id number] itjuana [place] [id number] Jose Antonio montez Professio [phone] [place] dical [address] 2020-01-09 2020-01-09 Outpatient R REYNA, [facility] [id number] Univers 15:00:00 15:00:00 [facility]ICO[facility] Results This patient has no known results.
[2021-07-04] MEDS ORDERED: LORazepam 2 MG/ML VIAL IV PRN (15:22)
[2021-07-04] MEDS: MORPHINE 2 MG/ML SYR IV SCH ×4 (16:58→22:05)
[2021-07-04] MEDS ORDERED: SCOPOLAMINE HYDROBROMIDE PATCH TD SCH (17:00)
--- NOTE | 2021-07-04 20:39 | P.PN ---
Subjective Date of Service: 07/04/21 Chief Complaint: SEVERE SHORTNESS OF BREATH Subjective: Worsening JERRICA COMES IN WITH DYSPNEA THAT IS NOT IMPROVING ON OUTPATIENT BASIS. SHE HAS HISTORY OF SMOKING WITH CAD WITH COPD. SHE CAME TO OFFICE A FEW TIME SAND I DIAGNOSED HER TO HAVE COPD AND CHF BOTH BEING AN ISSUE. SHE FAILED TO IMPROVE ON REGIMEN FOR CHF AND COPD BOTH. SHE REPORTS TO ER. SHE IN ADDITION IS FOUND TO HAVE COVID INFECTION. SHE IS GIVEN STEROIDS IV, NEBS, ZITHROMAX IV AND ALSO IV LASIX WITH SPIRONOLACTONE IN INCREASING DOSE. HER EF ON ECHO IS DOWN TO 20%. SHE CONTINUES TO HAVE RAPID BREATHING WITH EXHAUSTED FEELING. YESTERDAY I TALKED TO AND WE MADE HER DNR. TODAY HE AGREES WITH HOSPICE ALL EFFORTS FROM ALL 3 DOCTORS HAVE FAILED. WE WILL DC ALL MEDS EXCEPT FOR COMFORT CARE AND SHE IS ADMITTED TO [facility]. SHE IS NOT IN ANY PHYSICAL SHAPE TO UNDERGO INVASIVE EVALUATION AND TREATEMENT LIKE CARDIAC CATHETERIZATION. UNDERSTANDS AND AGREES. Review of Systems is unable to be obtained Physical Examination - Vital Signs Temperature: 97.5 F Blood Pressure: 160/105 Pulse: 109 Respirations: 19 Pulse Ox (%): 100 - Physical Exam General: Severe distress, Confused HEENT: Atraumatic, PERRLA, EOMI Neck: Supple, JVD not distended Respiratory: Diminished, Other (INCREASED RESPIRATORY RATE.) Cardiovascular: Regular rate/rhythm, Normal S1 S2 Gastrointestinal: Normal bowel sounds, No tenderness Musculoskeletal: No tenderness Integumentary: No rashes Neurological: Normal speech, Normal tone, Normal affect Lymphatics: No axilla or inguinal lymphadenopathy - Studies Medications List Reviewed: Yes Assessment And Plan - Current Problems (Diagnosis) (1) COVID Current Visit: No Status: Acute Plan: THIS MAY HAVE WEAKENED THE WHOLE BODY AND CONTRITBUTED TO DROP IN EJECTION FRACTION. (2) Congestive cardiomyopathy Current Visit: No Status: Acute Plan: SHE IS DNR AND MOST LIKELY WILL NOT SURVIVE A FEW DAYS. WHEN IS AGREEABLE WILL DISCONTINUE OXYGEN IT IS NOT HELPING HER ANY LONGER. NO MEDS WORKED ABOVE. (3) COPD (chronic obstructive pulmonary disease) Current Visit: No Status: Chronic Plan: SEVERE AND TERMINAL AT THIS POINT.
[2021-07-05] MEDS: MORPHINE 2 MG/ML SYR IV SCH ×12 (00:13→22:07)
[2021-07-05 01:30] VITALS: BMI 27.4
--- NOTE | 2021-07-05 12:56 | P.PN ---
Subjective Date of Service: 07/05/21 Chief Complaint: SEVERE SHORTNESS OF BREATH Subjective: Worsening JERRICA COMES IN WITH DYSPNEA THAT IS NOT IMPROVING ON OUTPATIENT BASIS. SHE HAS HISTORY OF SMOKING WITH CAD WITH COPD. SHE CAME TO OFFICE A FEW TIME SAND I DIAGNOSED HER TO HAVE COPD AND CHF BOTH BEING AN ISSUE. SHE FAILED TO IMPROVE ON REGIMEN FOR CHF AND COPD BOTH. SHE REPORTS TO ER. SHE IN ADDITION IS FOUND TO HAVE COVID INFECTION. SHE IS GIVEN STEROIDS IV, NEBS, ZITHROMAX IV AND ALSO IV LASIX WITH SPIRONOLACTONE IN INCREASING DOSE. HER EF ON ECHO IS DOWN TO 20%. SHE CONTINUES TO HAVE RAPID BREATHING WITH EXHAUSTED FEELING. YESTERDAY I TALKED TO AND WE MADE HER DNR. TODAY HE AGREES WITH HOSPICE ALL EFFORTS FROM ALL 3 DOCTORS HAVE FAILED. WE WILL DC ALL MEDS EXCEPT FOR COMFORT CARE AND SHE IS ADMITTED TO [facility]. SHE IS NOT IN ANY PHYSICAL SHAPE TO UNDERGO INVASIVE EVALUATION AND TREATEMENT LIKE CARDIAC CATHETERIZATION. UNDERSTANDS AND AGREES. JERRICA IS NOT AWAKE ANY LONGER. SHE IS MORE HYPOXIC. Review of Systems is unable to be obtained General: Weakness Physical Examination - Vital Signs Temperature: 97 F Blood Pressure: 126/83 Pulse: 104 Respirations: 19 Pulse Ox (%): 80 - Physical Exam General: Moderate distress, Comatose Respiratory: Diminished, Other Cardiovascular: Normal S1 S2 - Studies Medications List Reviewed: Yes Assessment And Plan - Current Problems (Diagnosis) (1) COVID Current Visit: No Status: Acute Plan: THIS MAY HAVE WEAKENED THE WHOLE BODY AND CONTRITBUTED TO DROP IN EJECTION FRACTION. (2) Congestive cardiomyopathy Current Visit: No Status: Acute Plan: SHE IS DNR AND MOST LIKELY WILL NOT SURVIVE A FEW DAYS. WHEN IS AGREEABLE WILL DISCONTINUE OXYGEN IT IS NOT HELPING HER ANY LONGER. NO MEDS WORKED ABOVE. COVID MAY BE REASON WHY SHE HAS THIS SHE HAD NORMAL EF 3 MONTHS AGO. (3) COPD (chronic obstructive pulmonary disease) Current Visit: No Status: Chronic Plan: SEVERE AND TERMINAL AT THIS POINT.
[2021-07-05 20:37] VITALS: BP 114/63; TEMP 99.5
[2021-07-05 22:55] VITALS: O2SAT 90
[2021-07-06] MEDS: MORPHINE 2 MG/ML SYR IV SCH ×3 (00:14→04:00)
--- NOTE | 2021-07-06 06:40 | P.DS ---
Admission Date: 07/04/21 Discharge Date: 07/06/21 Disposition: Discharge Condition: Reason for Admission: SEVERE SHORTNESS OF BREATH - Problems (1) COVID Status: Acute (2) Congestive cardiomyopathy Status: Acute (3) COPD (chronic obstructive pulmonary disease) Status: Chronic Hospital Course: JERRICA DEVELOPED SEVERE CARDIOMYOPATHY THAT WAS NOT CURABLE OR TREATABLE WITH MEDICINES DESPITE MANY TRIES. SHE ON HOSPICE EXPECTED. WAS COUNSELLED ON DAILY BASIS. Vital Signs/Physical Exam: Temp Pulse Resp BP Pulse Ox 99.5 F 103 H 20 114/63 80 L 07/05/21 20:00 07/05/21 20:00 07/06/21 02:31 07/05/21 20:00 07/06/21 02:31 Home Medications: Ipratropium/Albuterol Sulfate [Combivent Respimat Inhal [place]] 1 puff IH Q4H PRN 06/11/14 Levothyroxine Sodium [Synthroid] 125 mcg PO DAILY 06/11/14 Atorvastatin Calcium [Lipitor*] 10 mg PO DAILY 01/23/21 Fluticasone/Umeclidin/Vilanter [Trelegy Ellipta 100-62.5-25] 1 puff IH DAILY 01/23/21 Furosemide 20 mg PO DAILY #90 tablet 01/25/21 Spironolactone 25 mg PO DAILY #90 tablet 01/25/21 Megestrol [Megace*] 1 tab PO TID 07/03/21 Mirtazapine 1 tab PO BEDTIME 07/03/21 Potassium Chloride 1 tab PO DAILY 07/03/21
== END 2021-07-06 03:55 | disposition expired | DRG 951 ==
LOC: 4TH 15:06
PROVIDERS: ADMIT Internal Medicine; ATTEND Internal Medicine
DX: Z51.5 Encounter for palliative care (principal); U07.1 COVID-19; I42.9 Cardiomyopathy, unspecified; Z66 Do not resuscitate; J44.9 Chronic obstructive pulmonary disease, unspecified; Z87.891 Personal history of nicotine dependence
CPT/HCPCS: J2270